=== PATIENT | female | born 1940 | race Caucasian/White ===

== ENCOUNTER 2019-08-30 01:37 | Day surgery (SDC) | payer MEDICARE, SELFPAY ==
[2019-08-29 17:51] VITALS: BMI 25.9
[2019-08-30] VITALS (8 sets, daily range): BP systolic 100–145; BP diastolic 57–87; PULSE 57–64; RESP 16–18; TEMP 36.6–36.8; O2SAT 96–99; BMI 26.6
[2019-08-30 07:42] LABS: Basophils Absolute Auto 0.1 K/mm3 (0.0-0.1); Basophils Percent Auto 0.7 % (0.2-1.2); Eosinophils Absolute Auto 0.2 K/mm3 (0-0.3); Eosinophils Percent Auto 2.8 % (0-4.4); Hematocrit 40.1 % (37.0-47.0); Hemoglobin 13.5 g/dL (12.0-15.0); Immature Granulocyte Absolute 0.02 K/mm3 (0.00-0.031); Immature Granulocyte Percent A 0.3 % (0-0.5); Lymphocytes Absolute Auto 1.74 K/mm3 (0.9-3.2); Lymphocytes Percent Auto 25.3 % (18.3-44.2); Mean Corpuscular HGB Conc 33.7 g/dl (32-36); Mean Corpuscular Hemoglobin 30.5 pg (26-34); Mean Corpuscular Volume 90.7 fl (80-100); Mean Platelet Volume 11.3 fl (7.4-10.4); Monocytes Absolute Auto 0.5 K/mm3 (0.1-0.6); Monocytes Percent Auto 7.4 % (2.6-8.5); Neutrophils Absolute Auto 4.4 K/mm3 (1.3-6.7); Neutrophils Percent Auto 63.5 % (45.5-73.1); Platelet Count Result 170 k/mm3 (150-375); Red Blood Count 4.42 M/mm3 (4.2-5.4); Red Cell Distribution Width 12.6 % (11.5-14.5); White Blood Count 6.9 K/mm3 (4.5-10.0)
[2019-08-30 08:19] LABS: INR 0.9; Prothrombin Time 12.1 Seconds (11.1-14.7)
[2019-08-30 08:24] LABS: Blood Urea Nitrogen 17 mg/dL (7-17); Calcium 8.8 mg/dL (8.4-10.2); Carbon Dioxide 25 mmol/L (22-30); Chloride 105 mmol/L (98-107); Estimated CRCL calculation 54 ml/min; Estimated Glomerular Filt Rate > 60; Glucose 103 mg/dL (65-105); Potassium 4.2 mmol/L (3.4-5.0); Sodium 139 mmol/L (137-145)
--- NOTE | 2019-08-30 09:57 | WPDMODSED ---
Moderate Sedation Note-Pt Data Patient Data Diagnosis: 79-year-old patient with dyspnea, atypical chest pain and abnormal nuclear stress test Present Complaint: exertional dyspnea, intermittent nonexertional chest pain Procedure to be performed/Plan: left heart catheterization Allergies Allergy/AdvReac Type Severity Reaction Status Date / Time Penicillins Allergy Unknown Unknown Verified 08/30/19 07:48 Sulfa (Sulfonamide Allergy Unknown RASH Verified 08/30/19 07:48 Antibiotics) Home Medications Medication Instructions Recorded Confirmed Type aspirin 81 mg PO EVERY OTHER DAY 08/29/19 08/30/19 History coenzyme Q10 400 mg PO EVERY OTHER DAY 08/29/19 08/30/19 History multivitamin 1 tablet PO DAILY 08/29/19 08/29/19 History rosuvastatin [Crestor] 5 mg PO EVERY OTHER DAY 08/29/19 08/30/19 History calcium carbonate [Calcium 600] 1,200 mg PO DAILY 08/30/19 08/30/19 History cyanocobalamin (vitamin B-12) 1,000 mcg PO DAILY 08/30/19 08/30/19 History fish oil-dha-epa 1 cap PO DAILY 08/30/19 08/30/19 History Current Medications: Active Medications Sodium Chloride (Normal Saline Iv) 500 mls @ 100 mls/hr IV CONT .Q5H [facility] Sedation/Anesthesia: No previous sedation/anesthesia problems (including family history). [facility] Social History Social History Gender identity (if verbalized by the patient): Female Mod Sed Physical Exam Physical Exam Pre Procedural Exam: Normal: Appearance, Throat, Airway, Lungs, Heart Size, Heart Rate, Heart Rhythm, Neuro Exam and Extremities Hours since solid foods: 12 Hours since liquid intake: 12 Internal Medicine - PN: Obj Da Vital Signs Vital Signs: Vital Signs - 24 hr 08/30/19 07:15 Temperature 36.6 C Pulse Rate 64 Respiratory Rate 16 Blood Pressure 136/73 Pulse Oximetry 99 Meds/Results Medications: Active Medications Generic Name Dose Route Start Last Admin Trade Name Freq PRN Reason Stop Dose Admin Sodium Chloride 500 mls @ 100 mls/hr 08/30/19 06:05 Normal Saline Iv IV CONT .Q5H [facility] Labs CBC & Chem 7: 08/30/19 07:29 08/30/19 08:02 Labs: Laboratory Results - last 24 hr 08/30/19 08/30/19 08/30/19 07:29 08:02 08:02 WBC 6.9 RBC 4.42 Hgb 13.5 Hct 40.1 MCV 90.7 MCH 30.5 MCHC 33.7 RDW 12.6 Plt Count 170 MPV 11.3 H Immature Gran % (Auto) 0.3 Neut % (Auto) 63.5 Lymph % (Auto) 25.3 [place] % (Auto) 7.4 Eos % (Auto) 2.8 Baso % (Auto) 0.7 Lymph # (Auto) 1.74 [place] # (Auto) 0.5 Eos # (Auto) 0.2 Baso # (Auto) 0.1 Abs Immat Gran (auto) 0.02 Absolute Neuts (auto) 4.4 Absolute Nucleated RBC 0.0 Nucleated RBC % 0.0 PT 12.1 INR 0.9 Sodium 139 Potassium 4.2 Chloride 105 Carbon Dioxide 25 BUN 17 Creatinine 0.70 Estim Creat Clear Calc 54 Estimated GFR > 60 Glucose 103 Calcium 8.8 ASA Classification/Sedation ASA Classification/Sedation ASA Class: II Emergent: No Risks: Risks, benefits and alternatives explained and patient/family accepted plan for sedation. Patient re-evaluated immediately prior to sedation.
--- NOTE | 2019-08-30 09:58 | P.PCNCC_ITS ---
Cardiac Cath Procedure Note Date of procedure:: 08/30/19 Performing physician:: Dangelo Christensen MD Indication:: investigation of JUAREZ, chest pain abnormal nuclear stress test Brief clinical history:: 79-year-old white female a history of exertional dyspnea beginning about 6-8 months ago also with the nonexertional chest pain. a nuclear stress test was done as an outpatient which was abnormal most consistent with breast attenuation Procedure Procedure performed:: left heart catheterization with left ventriculography and coronary angiography Angio-Seal to right femoral artery Sedation/Medication given:: fentanyl 50 mg Versed 2 mg case start time 9:27 a.m. case end time 9:45 a.m. sedation provided by Ailin Palomo RN, trained observer Access site:: right femoral artery Estimated blood loss:: 15-20 cc Procedure note:: patient was brought to the cardiac catheterization lab in the postabsorptive state the right femoral triangle was prepared and draped in the usual fashion. Anesthesia was provided with 1% lidocaine infiltrated locally. Modified Seldinger technique right femoral artery was punctured and a 5 [place] vascular sheath was placed. Left heart catheterization was then carried out a 5 [place] angled pigtail catheter was used to inject the left ventricle the ESCOBEDO projection and to document left-sided hemodynamics. Pigtail catheter was then withdrawn and a 5 [place] FL4 catheter was used to inject the left coronary multiple projections. Following this a 5 [place] JR4 catheter was used to inject the right coronary artery in the SHAY projection. I exchanged this for a no Torque right coronary catheter for the [place] injection. Following this the procedure was terminated the angiogram was done femoral artery with she and Angio-Seal device was deployed with good hemostatic result. 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 Findings:: Central aortic pressure is 1 42/66 left ventricle 142 over to end- diastolic pressure 12 there is no systolic gradient on pullback across the aortic valve. Left main coronary is large caliber widely patent the LAD is a large caliber vessel extending down to around the apex and providing a significant amount of the inferior wall as well. The long LAD as well as its branches are angiographically normal. Circumflex is a large caliber vessel giving rise to the marginal branches and some posterior lateral branches as well. The circumflex is smooth and angiographically normal in appearance right coronary artery is medium in caliber and has a very small RPDA because of the long LAD described above. Other than this the right coronary artery is angiographically normal. The vessel was not engaged with the JR4 catheter there was some catheter induced spasm at the ostium of the artery which was not seen when engaged with the no Torque catheter Conclusion:: angiographically non disease artery normal left ventricular systolic successful Angio-Seal hemostasis device deployed at the of the case current chest pain syndrome is not related to myocardial ischemia based on these findings
--- NOTE | 2019-08-30 10:00 | SUR.PHASEII ---
BEGIN PHASE II RECOVERY. RETURNS VIA STRETCHER TO [facility] 6 S/P [facility] W/ DR. MOLINA. DROWSY, BUT ALERT AND ORIENTED ON ARRIVAL. DENIES CP OR SOB. R. GROIN PUNCTURE SITE SEALED W/ ANGIOSEAL CLOSURE DEVICE AND COVERED W/ STAT SEAL AND TEGADERM. SITE SOFT, NONTENDER, NO BLEEDING OR HEMATOMA NOTED. R. PEDAL PULSE STRONG. SENSATION AND MOVEMENT TO R. FOOT WNL. IVF'S RUNNING ORDERED. REVIEWED BEDREST ACTIVITY RESTRICTIONS AND LENGTH OF BEDREST. BEDREST X 2 HOURS. VOICED UNDERSTANDING OF ALL. VSS. WILL CONTINUE TO MONITOR.
--- NOTE | 2019-08-30 11:45 | SUR.PHASEII ---
BEDREST X 2 HOURS COMPLETE. R. GROIN SITE WITHOUT CHANGE. R. PEDAL PULSE REMAINS STRONG. DANGLED AT BEDSIDE, THEN AMBULATED TO BATHROOM TO VOID. RETURNED TO CHAIR. STEADY GAIT. TOLERATED ACTIVITY WELL. NO CHANGE IN R. GROIN SITE AFTER ACTIVITY. VSS. WILL CONTINUE TO MONITOR.
--- NOTE | 2019-08-30 13:00 | SUR.PHASEII ---
REVIEWED DISCHARGE INSTRUCTIONS AND FOLLOW UP CARE W/ PT. COPY GIVEN. QUESTIONS ANSWERED. VOICED UNDERSTANDING OF ALL INSTRUCTIONS. DISCHARGED HOME, OUT VIA WC WITH ALL PERSONAL BELONGINGS AND DISCHARGE INSTRUCTIONS TO 'S WAITING CAR. VOICES NO C/O. NO DISTRESS NOTED.
== END 2019-08-30 13:00 | disposition home or self-care (01) ==
PROVIDERS: Visit Provider Specialist
PROC: 4A023N7 Measurement of Cardiac Sampling and Pressure, Left Heart, Percutaneous Approach (ICD-10-PCS; CPT 93452; principal; 2019-08-30 08:30)
DX: R94.39 Abnormal result of other cardiovascular function study (principal); R07.89 Other chest pain; R06.09 Other forms of dyspnea; E11.9 Type 2 diabetes mellitus without complications; E78.5 Hyperlipidemia, unspecified; Z79.82 Long term (current) use of aspirin
CPT/HCPCS: 36415; 80048; 85025; 85610; 93458; C1760; C1887; C1894; G0269; J1644; J2250; J3010; J7040

== ENCOUNTER → 2020-08-24 00:57 | Outpatient (CLI) | payer MEDICARE, SELFPAY ==
[2020-08-24 20:39] LABS: SARS-CoV-2 RNA PCR Positive
== END ==
PROVIDERS: PCP Internal Medicine; Visit Provider Internal Medicine Gastroenterology
DX: Z01.812 Encounter for preprocedural laboratory examination (principal); U07.1 COVID-19
CPT/HCPCS: C9803; U0003; U0005

== ENCOUNTER 2020-10-01 01:20 | Day surgery (SDC) | payer MEDICARE, SELFPAY ==
[2020-08-06 14:42] VITALS: BMI 25.6
--- NOTE | 2020-08-27 09:13 | SUR.PREOP ---
Dania informed of COVID + and that procedure is canceled. Patient denies any symptomsat this time. Instructed to reschedule in four week by calling MD office.
[2020-09-16 13:37] VITALS: BMI 25.6
[2020-10-01 06:21] VITALS: BP 133/61; PULSE 67; RESP 20; TEMP 36.8; O2SAT 97; BMI 26.0
[2020-10-01] MEDS: LACTATED RINGERS 1,000 ML 150 ML IV CONT (06:29)
--- NOTE | 2020-10-01 07:08 | PM.HPGS ---
History of Present Illness History of Present Illness Consent: Risks, benefits, and alternatives have been discussed and questions answered. Patient agrees to proceed with procedure. Chief complaint: family hx of colon cancer Narrative: Dania Carlson is a 80 year old female Referred for colon cancer screening. her father had colon cancer Review of Systems Review of Systems: All systems reviewed & are unremarkable except as noted in HPI and below PMFSH Past Medical History Medical History Hyperlipidemia Family History Family History Other Carcinoma of colon Social History Social History Smoking status: Never smoker Alcohol intake: current Drinks per week: 1 Alcohol use details: WINE Substance use: never Substance use type: does not use Living arrangements: with family Gender identity (if verbalized by the patient): Female Spiritual care concerns: No Meds Home Medications and Allergies Home Medications Medication Instructions Recorded Confirmed Type coenzyme Q10 400 mg PO EVERY OTHER DAY 08/29/19 10/01/20 History multivitamin 1 tablet PO DAILY 08/29/19 10/01/20 History rosuvastatin [Crestor] 5 mg PO EVERY OTHER DAY 08/29/19 10/01/20 History calcium carbonate [Calcium 600] 1,200 mg PO DAILY 08/30/19 10/01/20 History cyanocobalamin (vitamin B-12) 1,000 mcg PO DAILY 08/30/19 10/01/20 History fish oil-dha-epa 1 cap PO Q48H 08/30/19 10/01/20 History aspirin [Adult Low Dose Aspirin] 81 mg PO Q48H 08/06/20 10/01/20 History cholecalciferol (vitamin D3) 25 mcg PO DAILY 08/06/20 10/01/20 History [Vitamin D3] Allergies Allergy/AdvReac Type Severity Reaction Status Date / Time Penicillins Allergy Intermediate Rash Verified 10/01/20 06:20 Sulfa (Sulfonamide Allergy Intermediate RASH Verified 10/01/20 06:20 Antibiotics) Vital Signs Vital Signs - 24 hr 10/01/20 06:21 Temperature 36.8 C Pulse Rate 67 Respiratory Rate 20 Blood Pressure 133/61 Pulse Oximetry 97 Exam Resp: Auscultation: clear to auscultation bilaterally Cardio: Rate: regular rate Rhythm: regular rhythm GI: GI Palp: Yes Soft to palpation and No Tenderness to palpation present (GI) Assessment and Plan Assessment and plan (1) Colon cancer screening: Code(s): Z12.11 - Encounter for screening for malignant neoplasm of colon Status: Acute Assessment and Plan: Colonoscopy with possible biopsy or polypectomy or cautery or injection of substances.
--- NOTE | 2020-10-01 07:18 | WPDANESEPPF ---
Anes - Initial Pre Proc Eval Procedure: Operation Date: 10/01/20 07:30 Proposed Procedures p Screening Colonoscopy - Jorge Dubois MD Date/Time: 10/01/20 07:18 Surgeon: Jorge Dubois MD Pre Op Diagnosis: family hx of colon cancer Patient Data Age: 80 Gender: F Height: 5 ft 6 in Weight: 73.3 kg Last Vital Signs Temp 98.3 F 10/01/20 06:21 Pulse 67 10/01/20 06:21 Resp 20 10/01/20 06:21 BP 133/61 10/01/20 06:21 Pulse Ox 97 10/01/20 06:21 Allergies Allergy/AdvReac Type Severity Reaction Status Date / Time Penicillins Allergy Intermediate Rash Verified 10/01/20 06:20 Sulfa (Sulfonamide Allergy Intermediate RASH Verified 10/01/20 06:20 Antibiotics) Home Medications Medication Instructions Recorded Confirmed Type coenzyme Q10 400 mg PO EVERY OTHER DAY 08/29/19 10/01/20 History multivitamin 1 tablet PO DAILY 08/29/19 10/01/20 History rosuvastatin [Crestor] 5 mg PO EVERY OTHER DAY 08/29/19 10/01/20 History calcium carbonate [Calcium 600] 1,200 mg PO DAILY 08/30/19 10/01/20 History cyanocobalamin (vitamin B-12) 1,000 mcg PO DAILY 08/30/19 10/01/20 History fish oil-dha-epa 1 cap PO Q48H 08/30/19 10/01/20 History aspirin [Adult Low Dose Aspirin] 81 mg PO Q48H 08/06/20 10/01/20 History cholecalciferol (vitamin D3) 25 mcg PO DAILY 08/06/20 10/01/20 History [Vitamin D3] Patient hx anesthesia problems: none Family hx anesthesia problems: none PMFSH Past Medical History Medical History (Updated 10/01/20 @ 07:17 by Omari Corado MD) Hyperlipidemia Social History Social History Smoking status: Never smoker Alcohol intake: current Drinks per week: 1 Alcohol use details: WINE Substance use: never Substance use type: does not use Living arrangements: with family Gender identity (if verbalized by the patient): Female Spiritual care concerns: No Anes - Eval Final PreProcedure Day of Procedure 10/01/20 07:18 Patient weight: normal Heart: regular rate and rhythm Lungs: clear to auscultation Airway: Mallampati scale class II Neurological: alert and oriented Last oral intake: >/= 8 hours ASA classification: II Emergent: no Anesthetic plan: proceed Anesthesia type and monitoring: general GIVS and standard monitoring Informed Consent: The patient's anesthetic plan and its attendant risks and benefits were discussed with the patient/family/POA. Questions were solicited and answers provided to the satisfaction of the patient/family/POA.
[2020-10-01 07:39] VITALS: BP 101/48; PULSE 78; RESP 20; O2SAT 96
[2020-10-01 07:49] VITALS: BP 109/61; PULSE 63; RESP 19; O2SAT 97
[2020-10-01 07:59] VITALS: BP 115/64; PULSE 61; RESP 17; O2SAT 97
[2020-10-01 08:09] VITALS: BP 119/61; PULSE 61; RESP 19; O2SAT 98
== END 2020-10-01 08:29 | disposition home or self-care (01) ==
PROVIDERS: PCP Internal Medicine; Visit Provider Internal Medicine Gastroenterology
PROC: 0DJD8ZZ Inspection of Lower Intestinal Tract, Via Natural or Artificial Opening Endoscopic (ICD-10-PCS; CPT 45378; principal; 2020-10-01 07:30)
DX: Z12.11 Encounter for screening for malignant neoplasm of colon (principal); K57.30 Diverticulosis of large intestine without perforation or abscess without bleeding; Z80.0 Family history of malignant neoplasm of digestive organs; E78.5 Hyperlipidemia, unspecified
CPT/HCPCS: G0105; J2704; J7120

== ENCOUNTER 2020-10-13 09:33 | Emergency (ER) | payer MEDICARE, SELFPAY ==
[2020-10-13 10:00] VITALS: BP 126/44; PULSE 71; RESP 12; TEMP 36.7; O2SAT 99
--- NOTE | 2020-10-13 10:15 | ED.SKABFB ---
HPI - Skin/Abscess/Foreign Bdy General Chief complaint: Skin/Abscess/Foreign Body Stated complaint: rash on scalp Source: patient and RN notes reviewed Limitations: no limitations History of Present Illness HPI narrative: The patient, mostly healthy on min. meds, presents with skin eruption. She states she has about half week history of pink, raised eruption limited to her hairline; she had a rare, first time hair appointment about couple weeks ago. No prior/other rashes, fever, discharge; she is concerned might be shingles- but it involves both sides of scalp. Discussed possible causes [infectious-viral, bacterial, allergic, etc.] and will treat broadly Related Data Home Medications Medication Instructions Recorded Confirmed coenzyme Q10 400 mg PO EVERY OTHER DAY 08/29/19 10/01/20 multivitamin 1 tablet PO DAILY 08/29/19 10/01/20 rosuvastatin [Crestor] 5 mg PO EVERY OTHER DAY 08/29/19 10/01/20 calcium carbonate [Calcium 600] 1,200 mg PO DAILY 08/30/19 10/01/20 cyanocobalamin (vitamin B-12) 1,000 mcg PO DAILY 08/30/19 10/01/20 fish oil-dha-epa 1 cap PO Q48H 08/30/19 10/01/20 aspirin 81 mg PO Q48H 08/06/20 10/01/20 cholecalciferol (vitamin D3) 25 mcg PO DAILY 08/06/20 10/01/20 [Vitamin D3] Allergies Allergy/AdvReac Type Severity Reaction Status Date / Time Penicillins Allergy Intermediate Rash Verified 10/13/20 09:49 Sulfa (Sulfonamide Allergy Intermediate RASH Verified 10/13/20 09:49 Antibiotics) Review of Systems Review of Systems: Narrative: General/Constitutional: No weight loss,fever Eyes: N0: Redness,discharge Ears/Nose/Throat: No: Epistaxis,ear discharge Respiratory: Denies: Hemoptysis Gastrointestinal: No Vomiting, Bleeding-rectal Skin: No Lumps, REPORTS eruption Neurologic: No Focal Weakness,Sz Hematologic: Denies: Petechiae/Purpura Psychiatric: No: Suicida ideationl All Other Systems: Reviewed and Negative [facility] Past Medical History Medical History Hyperlipidemia Family History Family History Other Carcinoma of colon Social History Social History Smoking status: Never smoker Alcohol intake: current Drinks per week: 1 Substance use: never Substance use type: does not use Gender identity (if verbalized by the patient): Female Spiritual care concerns: No Comments At time of signature, agree with nursing past medical, surgical, social and family history. There is no relevant family history pertinent to the presenting complaint Exam Narrative: Exam Narrative: General Appearance: Well-nourished, Cooperative Head: Normocephalic Skin: Warm, Dry small, isolated macular papular skin eruption of scalp line, and hair creases Eye: PERRLA, Conjunctiva clear Ear: External ear normal Nose: Normal nose, Nare clear Mouth/Throat: Normal appearing Neck Exam: Supple Respiratory: Airway patent, No respiratory distress Musculoskeletal: Moves all extremities, Non tender Neurological: A&O x3 Psychiatric: Normal mood, Normal affect Course Vital Signs Vital signs: Vital Signs Temperature 98.0 F 10/13/20 10:00 Pulse Rate 71 10/13/20 10:00 Respiratory Rate 12 10/13/20 10:00 Blood Pressure 126/44 L 10/13/20 10:00 Pulse Oximetry 99 10/13/20 10:00 Temperature 98.0 F 10/13/20 10:00 Pulse Rate 71 10/13/20 10:00 Respiratory Rate 12 10/13/20 10:00 Blood Pressure 126/44 L 10/13/20 10:00 Pulse Oximetry 99 10/13/20 10:00 Discharge Plan Discharge Clinical Impression: Eruption of scalp, Pruritic condition Patient Disposition: Home, Self-Care Condition: Stable Instructions: Antibiotic Form, Folliculitis (ED) Additional Instructions: Take antibiotics with food, probiotics; stop if diarrhea occurs Continue photo log of area Avoid hair/skin preparations like dyes, cleansers,
--- NOTE | 2020-10-13 10:49 | PC.NURSE ---
1028: patient was laughing and threw head back and hit the wall; no bump or laceration noted, Dr. Alves notified. Patient is awake and alert, ambulates with steady gait.
== END 2020-10-13 10:28 | disposition home or self-care (01) ==
PROVIDERS: Emergency Provider Emergency Medicine; PCP Internal Medicine
DX: R21 Rash and other nonspecific skin eruption (principal); L29.9 Pruritus, unspecified; E78.5 Hyperlipidemia, unspecified
CPT/HCPCS: 99213; G0463

== ENCOUNTER 2020-11-30 11:05 | Emergency (ER) | payer MEDICARE, SELFPAY ==
[2020-11-30 11:14] VITALS: BP 126/51; PULSE 62; RESP 16; TEMP 37; O2SAT 100
--- NOTE | 2020-11-30 11:26 | ED.SKABFB ---
HPI - Skin/Abscess/Foreign Bdy General Chief complaint: Skin/Abscess/Foreign Body Stated complaint: Rash Time Seen by Provider: 11/30/20 11:15 Source: patient Mode of arrival: ambulatory Limitations: no limitations History of Present Illness HPI narrative: Dania Carlson is a 80 yo female with a PMH of high cholesterol who comes with a pruritic rash on the R front side, and L back side of neck that started 2-3 days ago but is getting worse. Her only known risk factor is working on the yard in the last week she is highly allergic to poison robb and poison sumac and we discussed cleaning of clothing and tools as relates to that; also has been having multiple health problems and she has had a lot of stress Related Data Home Medications Medication Instructions Recorded Confirmed coenzyme Q10 400 mg PO EVERY OTHER DAY 08/29/19 10/13/20 multivitamin 1 tablet PO DAILY 08/29/19 10/13/20 rosuvastatin [Crestor] 5 mg PO EVERY OTHER DAY 08/29/19 10/13/20 calcium carbonate [Calcium 600] 1,200 mg PO DAILY 08/30/19 10/13/20 cyanocobalamin (vitamin B-12) 1,000 mcg PO DAILY 08/30/19 10/13/20 fish oil-dha-epa 1 cap PO Q48H 08/30/19 10/13/20 aspirin 81 mg PO Q48H 08/06/20 10/13/20 cholecalciferol (vitamin D3) 25 mcg PO DAILY 08/06/20 10/13/20 [Vitamin D3] Allergies Allergy/AdvReac Type Severity Reaction Status Date / Time Penicillins Allergy Intermediate Rash Verified 10/13/20 09:49 Sulfa (Sulfonamide Allergy Intermediate RASH Verified 10/13/20 09:49 Antibiotics) Review of Systems Review of Systems: Narrative: CONSTITUTIONAL: Denies fever, chills, sweats. EYES: Denies visual changes, redness, discharge. ENT: Denies rhinorrhea, congestion, sore throat, otalgia. CARDIOVASCULAR: Denies chest pain, palpitations, edema. RESPIRATORY: Denies dyspnea, wheezing, cough GASTROINTESTINAL: Denies abdominal pain, nausea, vomiting, diarrhea. GENITOURINARY: Denies dysuria, hematuria, abnormal discharge SKIN: Rash on right side of front neck and left posterior side of neck, itchy, appears to be enlarging NEUROLOGIC: Denies numbness, or focal weakness. PSYCHIATRIC: Denies anxiety or depression. PMFSH Past Medical History Medical History Hyperlipidemia Family History Family History Other Carcinoma of colon Social History Social History Smoking status: Never smoker Alcohol intake: current Drinks per week: 1 Substance use: never Substance use type: does not use Gender identity (if verbalized by the patient): Female Spiritual care concerns: No Comments At time of signature, I agree with nursing past medical, surgical, social and family history. There is no relevant family history pertinent to the presenting complaint. Exam Narrative: Exam Narrative: GENERAL: This is a well-nourished, well-developed patient, in mild distress. HEAD: normocephalic, atraumatic. EYES: . Sclera clear/white. Vision is grossly intact. EARS: External ears normal, . Hearing grossly intact. NOSE: External nose normal without nasal discharge, nares without redness, no rhinorrhea. THROAT: Mucous membranes moist, NECK: Neck supple, non-tender CARDIOVASCULAR: Regular rate and rhythm without murmurs, gallops, or rubs. RESPIRATORY: Clear to auscultation. Breath sounds equal bilaterally. No wheezes, rales, or rhonchi. GASTROINTESTINAL: Abdomen soft, non-tender, SKIN: warm, intact with pruritic papular rash on the front right side of neck and left side, nonvesicular NEURO: awake, alert, and oriented to person, place and time. There were no obvious focal neurologic abnormalities. Steady gait EXTREMITIES: Normal range of motion. BACK: Nontender without deformity Course Course Emergency Course: [facility] of rash on neck; for the risk of being in the
== END 2020-11-30 11:40 | disposition home or self-care (01) ==
PROVIDERS: Emergency Provider Nurse Practitioner; PCP Internal Medicine
DX: L23.7 Allergic contact dermatitis due to plants, except food (principal); E78.5 Hyperlipidemia, unspecified; E78.00 Pure hypercholesterolemia, unspecified
CPT/HCPCS: 99213; G0463

== ENCOUNTER 2021-12-12 14:50 | Emergency (ER) | payer MEDICARE, SELFPAY ==
--- NOTE | ~2021-12-12 | XR_ITS ---
XR chest 2V DATE: 12/12/2021 15:10 INDICATION: Chest tightness, cough, fever, congestion TECHNIQUE: PA and lateral views COMPARISON: 03/19/2018 PA and lateral chest FINDINGS: Normal heart size. No hilar or mediastinal enlargement. Mild bilateral apical capping. No p ulmonary infiltrate or consolidation, pleural effusion or pulmonary vascular congestion or pneumothor ax. Osteopenia. Minimal dextroscoliosis and mild degenerative change of the thoracic spine. IMPRESSION: No active cardiopulmonary disease Reviewed, dictated and finalized at location A.
[2021-12-12 14:57] VITALS: BP 138/68; PULSE 83; PULSE 87; RESP 20; RESP 23; TEMP 37.2; O2SAT 96; O2SAT 97
[2021-12-12 14:58] VITALS: BP 124/111; PULSE 87; RESP 20; O2SAT 98
[2021-12-12 15:00] VITALS: BP 138/68; PULSE 95; RESP 14; O2SAT 95
[2021-12-12 15:01] VITALS: PULSE 83; RESP 25; O2SAT 97
--- NOTE | 2021-12-12 15:01 | ECG_ITS ---
Measurements Intervals Banks Rate: 84 P: 70 NC: 161 QRS: 5 QRSD: 102 T: 55 QT: 369 QTc: 439 Interpretive Statements SINUS RHYTHM ATRIAL PREMATURE COMPLEX BORDERLINE R WAVE PROGRESSION, ANTERIOR LEADS BASELINE ARTIFACT- I, II, III, AVR, AVL, AVF, V1, V6 BORDERLINE ECG Electronically Signed On 12-12-2021 17:17:14 CDT by Jerome León D.O.
--- NOTE | 2021-12-12 15:01 | ED.SOB ---
HPI - SOB/Dyspnea General Chief Complaint: Shortness of Breath/Dyspnea Stated Complaint: Cough, Fever, Body Aches Time Seen by Provider: 12/12/21 14:59 Source: patient Mode of arrival: ambulatory Limitations: no limitations History of Present Illness HPI Narrative: Patient is 81 years old white female presented to the ED with not feeling well, coughing, fever, chills, body aches, chest tightness and back pain started 3 days ago. Also complaining of some shortness of breath on exertion. She denies sick contact, patient is fully vaccinated for COVID-19 and posted x1. Related Data Home Medications Medication Instructions Recorded Confirmed coenzyme Q10 200 mg capsule 400 mg PO EVERY OTHER DAY 08/29/19 10/13/20 multivitamin 1 tablet PO DAILY 08/29/19 10/13/20 rosuvastatin 5 mg tablet (Crestor) 5 mg PO EVERY OTHER DAY 08/29/19 10/13/20 calcium carbonate 600 mg calcium 1,200 mg PO DAILY 08/30/19 10/13/20 (1,500 mg) tablet (Calcium) cyanocobalamin (vitamin B-12) 1,000 mcg PO DAILY 08/30/19 10/13/20 1,000 mcg tablet fish oil-dha-epa 1,200 mg-144 1 cap PO Q48H 08/30/19 10/13/20 mg-216 mg capsule aspirin 81 mg tablet 81 mg PO Q48H 08/06/20 10/13/20 cholecalciferol (vitamin D3) 25 25 mcg PO DAILY 08/06/20 10/13/20 mcg (1,000 unit) capsule (Vitamin D3) Allergies Allergy/AdvReac Type Severity Reaction Status Date / Time Penicillins Allergy Intermediate Rash Verified 12/12/21 15:02 Sulfa (Sulfonamide Allergy Intermediate RASH Verified 12/12/21 15:02 Antibiotics) Review of Systems Review of Systems: All systems reviewed & are unremarkable except as noted in HPI and below PMFSH Past Medical History Medical History Hyperlipidemia Family History Family History Other Carcinoma of colon Social History Social History Smoking status: Never smoker Alcohol intake: current Drinks per week: 1 Alcohol use details: WINE Substance use: never Substance use type: does not use Gender identity (if verbalized by the patient): Female Spiritual care concerns: No Exam Narrative: General appearance: Well-developed, well-nourished, does not look in pain or distress or have trouble breathing. Skin: Normal color Head: Normocephalic, nontraumatic Eyes: Clear conjunctiva ENT: Oropharynx normal, ears normal, nose normal Neck: Supple, nontender Chest and respiratory: Airway patent, no respiratory distress, no accessory muscle use Heart: Regular rate/rhythm Abdomen: Soft, nontender, no organomegaly, quiet bowel sounds Vascular: Normal peripheral pulses, normal capillary refill. Musculoskeletal: Normal range of motion, nontender back Neurologic: Alert and oriented ?3, ROOFER GYPSUM is normal as tested, no gross motor deficit Course Course Emergency Course: Patient presents with COVID symptoms which is mild to moderate, patient oxygenation on room air 96 to 99%, presents with no fever, hemodynamically stable, work-up today showed no significant abnormality to justify hospitalization. Paxlovid should be given within the first 5 days of infection. Today is day 3. Patient's symptoms are mild to moderate. Reevaluation(s) Reevaluation #1: Patient feeling okay and looking okay at the time of discharge. Date: 12/12/21 Time: 17:42 Vital Signs Vital signs: Vital Signs Temperature 37.2 C 12/12/21 14:57 Pulse Rate 87 12/12/21 14:57 Respiratory Rate 20 12/12/21 14:57 Blood Pressure 138/68 12/12/21 14:57 Pulse Oximetry 96 12/12/21 14:57 Oxygen Delivery Room Air 12/12/21
[2021-12-12 15:16] VITALS: PULSE 78; O2SAT 99
[2021-12-12] MEDS: ASPIRIN 81 MG CHEWABLE TABLET 324 MG PO (15:19)
[2021-12-12 15:29] LABS: Basophils Percent Auto 0.5 % (0.2-1.2); Eosinophils Absolute Auto 0.1 K/mm3 (0-0.3); Eosinophils Percent Auto 1.5 % (0-4.4); Hematocrit 41.8 % (37.0-47.0); Hemoglobin 14.2 g/dL (12.0-15.0); Immature Granulocyte Absolute 0.01 K/mm3 (0.00-0.031); Immature Granulocyte Percent A 0.1 % (0-0.5); Lymphocytes Absolute Auto 1.04 K/mm3 (0.9-3.2); Lymphocytes Percent Auto 12.2 % (18.3-44.2); Mean Corpuscular Hemoglobin 31.1 pg (26-34); Mean Corpuscular Volume 91.5 fl (80-100); Mean Platelet Volume 10.5 fl (7.4-10.4); Monocytes Absolute Auto 0.7 K/mm3 (0.1-0.6); Neutrophils Absolute Auto 6.6 K/mm3 (1.3-6.7); Neutrophils Percent Auto 77.7 % (45.5-73.1); Platelet Count Result 163 k/mm3 (150-375); Red Blood Count 4.57 M/mm3 (4.2-5.4); White Blood Count 8.5 K/mm3 (4.5-10.0)
--- NOTE | 2021-12-12 15:37 | PC.NURSE ---
Pt to restroom with steady gait for urine sample.
--- NOTE | 2021-12-12 15:39 | PC.NURSE ---
Pt unable to provide ua, refusing cath, will attempt sheyla
[2021-12-12 15:40] LABS: Alanine Aminotransferase 25 U/L (6-35); Alkaline Phosphatase 87 U/L (38-126); Anion Gap 7 mmol/L (8-16); Aspartate Amino Transferase 31 U/L (14-36); Bilirubin,Total 0.5 mg/dL (0.2-1.3); Blood Urea Nitrogen 16 mg/dL (7-17); Calcium 8.8 mg/dL (8.4-10.2); Carbon Dioxide 24 mmol/L (22-30); Chloride 103 mmol/L (98-107); Estimated CRCL calculation 42 ml/min; Estimated Glomerular Filt Rate 60; Glucose 118 mg/dL (65-110); Lipase 148 U/L (23-300); Potassium 3.9 mmol/L (3.4-5.0); Sodium 134 mmol/L (137-145)
[2021-12-12 15:41] LABS: Lactic Acid Reflex 0.9 mmol/L (0.7-2.0)
[2021-12-12 15:51] LABS: Troponin I < 0.012 ng/mL (0.000-0.034)
[2021-12-12 15:57] LABS: Prothrombin Time 12.9 Seconds (11.1-14.7)
[2021-12-12 15:58] LABS: Partial Thromboplastin Time 29.5 SECONDS (22.3-36.8)
[2021-12-12 16:46] LABS: Influenza A QL RT-PCR Negative (Negative); Influenza B QL RT-PCR Negative (Negative); SARS-CoV-2 RNA PCR Positive
[2021-12-12 17:19] LABS: Bacteria Urine Trace /hpf; Calcium Oxalate Crystals Urine Present /hpf; Mucus Urine Heavy /lpf; Squamous Epithelial Cell Urine Rare /hpf (Few)
[2021-12-12 17:26] LABS: Color Urine Yellow (Yellow)
[2021-12-12 17:27] LABS: Appearance Urine Clear (Clear)
[2021-12-12 17:28] LABS: Add Urine Microscopic? YES; Bilirubin Urine 1+ (Negative); Blood Urine Negative (Negative); Glucose Urine UA Negative (Negative); Ketones Urine 1+ mg/dL (Negative); Leukocyte Esterase Ur Negative LEU/UL (Negative); Nitrate Urine Negative (Negative); Protein Urine Trace mg/dL (Negative); Specific Grav Ur 1.025 (1.001-1.035); Urobilinogen Urine 0.2 mg/dL (<2.0); pH Urine 5.5 (5.0-9.0)
[2021-12-12 17:46] VITALS: BP 142/78; PULSE 78; RESP 16; O2SAT 100
== END 2021-12-12 17:46 | disposition home or self-care (01) ==
PROVIDERS: Emergency Provider Emergency Medicine; PCP Internal Medicine
DX: U07.1 COVID-19 (principal); E78.5 Hyperlipidemia, unspecified; R82.998 Other abnormal findings in urine
CPT/HCPCS: 36415; 71046; 80053; 81001; 83605; 83690; 84484; 85025; 85610; 85730; 86140; 87040; 87086; 87147; 87181; 87186; 87502; 93005; 99284; A9270; C9803; U0003; U0005

== ENCOUNTER 2022-04-03 15:31 | Emergency (ER) | payer MEDICARE, SELFPAY ==
--- NOTE | ~2022-04-03 | CT_ITS ---
EXAMINATION: CT abdomen pelvis w con DATE: 04/03/2022 18:36 INDICATION: Generalized abdominal pain. Blood in stool. TECHNIQUE: Computed tomography (CT) of the abdomen and pelvis was performed with 100 mL Omnipaque 350 intravenous contrast. Automated exposure control and iterative reconstruction technique were employe d. The dose-length product was 409.18 mGy-cm. COMPARISON: None. FINDINGS: The visualized portions of the lung bases demonstrate mild atelectasis. A calcified left kanchan ng nodule is consistent with old granulomatous disease. No pleural effusion. The heart size is normal . No pericardial effusion. The liver and gallbladder are normal. Calcifications in the spleen are con sistent with old granulomatous disease. The pancreas, adrenal glands, and kidneys are normal. There i s diverticulosis of the colon without evidence of diverticulitis. There are no dilated loops of bowel . The appendix is not visualized. There are no pathologically enlarged lymph nodes. There is no free intraperitoneal fluid. There is an umbilical hernia containing fat. There is fat stranding at the will t of the small bowel mesentery. There is a total right hip arthroplasty. There is severe lumbar spond ylosis and moderate thoracic spondylosis. IMPRESSION: 1. Umbilical hernia containing fat. 2. Fat stranding at the root of the small bowel mesentery, which may be edema or inflammation (mesent lizy panniculitis). Reviewed, dictated and finalized at location A. IMPRESSION: 1. Umbilical hernia containing fat. 2. Fat stranding at the root of the small bowel mesentery, which may be edema o r inflammation (mesenteric panniculitis).
[2022-04-03 15:52] VITALS: BP 124/50; PULSE 81; RESP 16; TEMP 37.1; O2SAT 99
[2022-04-03 16:01] LABS: Basophils Absolute Auto 0.1 K/mm3 (0.0-0.1); Basophils Percent Auto 0.8 % (0.2-1.2); Eosinophils Absolute Auto 0.2 K/mm3 (0-0.3); Eosinophils Percent Auto 1.8 % (0-4.4); Hematocrit 40.1 % (37.0-47.0); Hemoglobin 13.8 g/dL (12.0-15.0); Immature Granulocyte Absolute 0.02 K/mm3 (0.00-0.031); Immature Granulocyte Percent A 0.2 % (0-0.5); Lymphocytes Absolute Auto 1.97 K/mm3 (0.9-3.2); Lymphocytes Percent Auto 23.1 % (18.3-44.2); Mean Corpuscular HGB Conc 34.4 g/dl (32-36); Mean Corpuscular Hemoglobin 31.2 pg (26-34); Mean Corpuscular Volume 90.5 fl (80-100); Mean Platelet Volume 10.4 fl (7.4-10.4); Monocytes Absolute Auto 0.5 K/mm3 (0.1-0.6); Monocytes Percent Auto 5.9 % (2.6-8.5); Neutrophils Absolute Auto 5.8 K/mm3 (1.3-6.7); Neutrophils Percent Auto 68.2 % (45.5-73.1); Platelet Count Result 193 k/mm3 (150-375); Red Blood Count 4.43 M/mm3 (4.2-5.4); Red Cell Distribution Width 12.4 % (11.5-14.5); White Blood Count 8.5 K/mm3 (4.5-10.0)
[2022-04-03 16:12] LABS: Alanine Aminotransferase 26 U/L (6-35); Albumin Level 4.4 g/dL (3.5-5.1); Alkaline Phosphatase 89 U/L (38-126); Anion Gap 10 mmol/L (8-16); Aspartate Amino Transferase 31 U/L (14-36); Bilirubin,Total 0.4 mg/dL (0.2-1.3); Blood Urea Nitrogen 19 mg/dL (7-17); Calcium 9.5 mg/dL (8.4-10.2); Carbon Dioxide 25 mmol/L (22-30); Chloride 104 mmol/L (98-107); Estimated Glomerular Filt Rate > 60; Glucose 128 mg/dL (65-110); Potassium 3.9 mmol/L (3.4-5.0); Sodium 139 mmol/L (137-145)
[2022-04-03 16:20] LABS: INR 0.9; Prothrombin Time 12.2 Seconds (11.1-14.7)
[2022-04-03 16:21] LABS: Partial Thromboplastin Time 26.8 SECONDS (22.3-36.8)
--- NOTE | 2022-04-03 17:53 | ED.GIBLEED ---
HPI - GI Bleed General Chief complaint: GI Bleed Stated complaint: GI bleed Time Seen by Provider: 04/03/22 17:42 History of Present Illness HPI Narrative: 81-year-old female presents to the emergency room today for complaints of generalized abdominal discomfort and rectal bleeding. She reports that symptoms have been going on for the past 3 days. She describes the abdominal discomfort as more of an indigestion feeling. She says that she just has not been feeling well and she has been feeling tired and rundown. She says that the rectal bleeding has been small amounts of bright red and has only happened a few times. One time it was with stool and the other time it was when she wiped. No dizziness or lightheadedness. Denies any chest pain or shortness of breath. No nausea, vomiting or diarrhea. Related Data Home Medications Medication Instructions Recorded Confirmed coenzyme Q10 200 mg capsule 400 mg PO EVERY OTHER DAY 08/29/19 10/13/20 multivitamin 1 tablet PO DAILY 08/29/19 10/13/20 rosuvastatin 5 mg tablet (Crestor) 5 mg PO EVERY OTHER DAY 08/29/19 10/13/20 calcium carbonate 600 mg calcium 1,200 mg PO DAILY 08/30/19 10/13/20 (1,500 mg) tablet (Calcium) cyanocobalamin (vitamin B-12) 1,000 mcg PO DAILY 08/30/19 10/13/20 1,000 mcg tablet fish oil-dha-epa 1,200 mg-144 1 cap PO Q48H 08/30/19 10/13/20 mg-216 mg capsule aspirin 81 mg tablet 81 mg PO Q48H 08/06/20 10/13/20 cholecalciferol (vitamin D3) 25 25 mcg PO DAILY 08/06/20 10/13/20 mcg (1,000 unit) capsule (Vitamin D3) Allergies Allergy/AdvReac Type Severity Reaction Status Date / Time Penicillins Allergy Intermediate Rash Verified 12/12/21 15:02 Sulfa (Sulfonamide Allergy Intermediate RASH Verified 12/12/21 15:02 Antibiotics) Review of Systems Review of Systems: CONSTITUTIONAL: Denies fever, chills, or sweats. Reports fatigue. EYES: Denies visual changes, redness, or discharge. ENT: Denies rhinorrhea, congestion, sore throat, or otalgia. CARDIOVASCULAR: Denies chest pain, palpitations, or edema. RESPIRATORY: Denies cough or dyspnea. GASTROINTESTINAL: Reports generalized abdominal discomfort and bloating, denies nausea, vomiting, or diarrhea. reports small bright red rectal bleeding GENITOURINARY: Denies dysuria or hematuria. SKIN: Denies rash or itching. MUSCULOSKELETAL: Denies back pain, joint pain, or myalgia. NEUROLOGIC: Denies headache, numbness, dizziness, or weakness. PSYCHIATRIC: Denies anxiety or depression. PMFSH Past Medical History Medical History Hyperlipidemia Family History Family History Other Carcinoma of colon Social History Social History Smoking status: Never smoker Alcohol intake: current Drinks per week: 1 Alcohol use details: WINE Substance use: never Substance use type: does not use Gender identity (if verbalized by the patient): Female Spiritual care concerns: No Exam Narrative: GENERAL: Well-appearing, well-nourished, and in no acute distress. HEAD: Normocephalic, atraumatic. NECK: Supple. No adenopathy or masses. No carotid bruits or JVD CHEST: Clear to auscultation. No respiratory distress. No wheezes rales or rhonchi HEART: Regular rate and rhythm. No murmur heard. Normal peripheral pulses. ABDOMEN: Soft, nontender, nondistended, normal active bowel sounds. EXTREMITIES: Normal range of motion. No edema. SKIN: Warm, dry, no rash. NEURO: No focal deficits. Alert and oriented x3. PSYCH: Normal mood and affect. Course Vital Signs Vital signs: Vital Signs Temperature 37.1 C 04/03/22 15:52 Pulse Rate 81 04/03/22 15:52 Respiratory Rate 16 04/03/22 15:52 Blood Pressure 124/50 L 04/03/22 15:52 Pulse Oximetry 99 04/03/22 15:52 Oxygen Delivery Room Air 04/03/22 15:52 Temperature 37.1 C 0
[2022-04-03 18:13] VITALS: BP 117/55; PULSE 71; RESP 16; O2SAT 99
[2022-04-03 19:13] VITALS: BP 160/64; PULSE 74; RESP 16; O2SAT 100
[2022-04-03 19:42] LABS: CRP 0.6 mg/dL (<1.0)
== END 2022-04-03 19:30 | disposition home or self-care (01) ==
PROVIDERS: Emergency Medicine; Emergency Provider Nurse Practitioner Family; PCP Internal Medicine
DX: K65.4 Sclerosing mesenteritis (principal); R14.0 Abdominal distension (gaseous); K62.5 Hemorrhage of anus and rectum; E78.5 Hyperlipidemia, unspecified; Z79.82 Long term (current) use of aspirin; K42.9 Umbilical hernia without obstruction or gangrene
CPT/HCPCS: 36415; 74177; 80053; 85025; 85610; 85730; 86140; 86850; 86900; 86901; 99284; Q9967

== ENCOUNTER 2023-08-12 14:01 | Emergency (ER) | payer MEDICARE, SELFPAY ==
[2023-08-12] VITALS (7 sets, daily range): BP systolic 127–148; BP diastolic 52–68; PULSE 59–69; RESP 16–20; TEMP 36.5; O2SAT 97–100
--- NOTE | ~2023-08-12 | XR_ITS ---
EXAMINATION: XR chest 2V 08/12/2023 15:09 INDICATION: Shortness of breath PROCEDURE: 2 view chest COMPARISON: 12/12/2021 FINDINGS: The lungs are clear. The cardiomediastinal silhouette is within normal limits. There are no pleural effusions. There is no pneumothorax suspected. IMPRESSION: 1: NO ACUTE CARDIOPULMONARY DISEASE. Reviewed, dictated and finalized at location L. 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
--- NOTE | 2023-08-12 14:03 | ECG_ITS ---
Measurements Intervals [place] Rate: 67 P: 74 DC: 152 QRS: -37 QRSD: 106 T: 61 QT: 377 QTc: 400 Interpretive Statements SINUS RHYTHM WITH SINUS ARRHYTHMIA LEFT AXIS DEVIATION LEFT ATRIAL ENLARGEMENT INCOMPLETE RIGHT BUNDLE BRANCH BLOCK ANTEROSEPTAL INFARCT, AGE INDETERMINATE BORDERLINE ST-T WAVE ABNORMALITY- INF/LAT LEADS ABNORMAL ECG COMPARED TO ECG 12/12/2021 15:03:11 SINUS ARRHYTHMIA NOW PRESENT LEFT-AXIS DEVIATION NOW PRESENT INCOMPLETE RIGHT BUNDLE-BRANCH BLOCK NOW PRESENT MYOCARDIAL INFARCT NOW PRESENT Electronically Signed On 08-12-2023 14:12:07 RN SPINE by Jerome León D.O.
--- NOTE | 2023-08-12 14:37 | ED.CHESTPAIN ---
HPI - Chest Pain General Chief Complaint: Chest Pain Stated Complaint: chest pain Time Seen by Provider: 08/12/23 14:26 Source: patient Mode of arrival: ambulatory Limitations: no limitations History of Present Illness HPI narrative: This is a 83 year old female that presents to the ER for chest pain. Ongoing today. Reports intermittent left sided chest discomfort that radiates out. Reports it feels like a tightness. Reports she has noted exertional dyspnea the last couple of weeks. Denies lower extremity edema. Related Data Home Medications Medication Instructions Recorded Confirmed coenzyme Q10 200 mg capsule 400 mg PO EVERY OTHER DAY 08/29/19 10/13/20 multivitamin 1 tablet PO DAILY 08/29/19 10/13/20 rosuvastatin 5 mg tablet (Crestor) 5 mg PO EVERY OTHER DAY 08/29/19 10/13/20 calcium carbonate 600 mg calcium 1,200 mg PO DAILY 08/30/19 10/13/20 (1,500 mg) tablet (Calcium) cyanocobalamin (vitamin B-12) 1,000 mcg PO DAILY 08/30/19 10/13/20 1,000 mcg tablet fish oil-dha-epa 1,200 mg-144 1 cap PO Q48H 08/30/19 10/13/20 mg-216 mg capsule aspirin 81 mg tablet 81 mg PO Q48H 08/06/20 10/13/20 cholecalciferol (vitamin D3) 25 25 mcg PO DAILY 08/06/20 10/13/20 mcg (1,000 unit) capsule (Vitamin D3) Allergies Allergy/AdvReac Type Severity Reaction Status Date / Time Penicillins Allergy Intermediate Rash Verified 08/12/23 14:20 Sulfa (Sulfonamide Allergy Intermediate RASH Verified 08/12/23 14:20 Antibiotics) Review of Systems Review of Systems: CONSTITUTIONAL: Denies fever CARDIOVASCULAR: Reports chest pain. Denies edema. RESPIRATORY: Reports dyspnea. All systems reviewed & are unremarkable except as noted in HPI and below PMFSH Past Medical History Medical History Hyperlipidemia Family History Family History Other Carcinoma of colon Social History Social History Smoking status: Never smoker Alcohol intake: current Drinks per week: 1 Alcohol use details: WINE Substance use: never Substance use type: does not use Living arrangements: with family Gender identity (if verbalized by the patient): Female Spiritual care concerns: No Exam Narrative: GENERAL: Well-appearing, well-nourished, and in no acute distress. HEAD: Normocephalic, atraumatic. EYES: EOMI. NECK: Supple. No adenopathy or masses. No JVD CHEST: Clear to auscultation. No respiratory distress. No wheezes rales or rhonchi HEART: Regular rate and rhythm. No murmur heard. Normal peripheral pulses. EXTREMITIES: Normal range of motion. No edema. SKIN: Warm, dry, no rash. NEURO: No focal deficits. Alert and oriented x3. PSYCH: Normal mood and affect Course Course Emergency Course: Patient updated on her workup and recommendation for admission. She declines at this time Vital Signs Vital signs: Vital Signs Temperature 97.7 F 08/12/23 14:05 Pulse Rate 69 08/12/23 14:05 Respiratory Rate 20 08/12/23 14:05 Blood Pressure 148/58 H 08/12/23 14:05 Pulse Oximetry 100 08/12/23 14:05 Oxygen Delivery Room Air 08/12/23 14:05 Temperature 97.7 F 08/12/23 14:05 Pulse Rate 66 08/12/23 17:57 Respiratory Rate 17 08/12/23 17:57 Blood Pressure 141/60 H 08/12/23 17:57 Pulse Oximetry 98 08/12/23 17:57 Oxygen Delivery Room Air 08/12/23 14:18 MDM - Chest Pain MDM Narrative Medical decision making narrative: Patient presents to the emergency department for chest pain today. Also reporting recent ongoing exertional dyspnea. Her vitals are stable. CBC and metabolic panel without concerning findings. EKG with nonspecific changes. Her baseline troponin is negative. Chest x-ray without acute cardiopulmonary abnormality. Her BNP is not elevated. Her heart score is a 5. Patient updated on her workup a
[2023-08-12] MEDS: ASPIRIN 81 MG CHEWABLE TABLET 324 MG PO (14:48)
[2023-08-12 15:26] LABS: Basophils Percent Auto 0.6 % (0.2-1.2); Eosinophils Absolute Auto 0.2 K/mm3 (0-0.3); Eosinophils Percent Auto 2.7 % (0-4.4); Immature Granulocyte Absolute 0.02 K/mm3 (0.00-0.031); Immature Granulocyte Percent A 0.3 % (0-0.5); Lymphocytes Absolute Auto 1.98 K/mm3 (0.9-3.2); Lymphocytes Percent Auto 29.6 % (18.3-44.2); Mean Corpuscular HGB Conc 33.3 g/dl (32-36); Mean Corpuscular Hemoglobin 30.7 pg (26-34); Mean Corpuscular Volume 92.1 fl (80-100); Mean Platelet Volume 11.6 fl (7.4-10.4); Monocytes Absolute Auto 0.5 K/mm3 (0.1-0.6); Monocytes Percent Auto 7.6 % (2.6-8.5); Neutrophils Percent Auto 59.2 % (45.5-73.1); Platelet Count Result 187 k/mm3 (150-375); Red Blood Count 4.56 M/mm3 (4.2-5.4); Red Cell Distribution Width 12.6 % (11.5-14.5); White Blood Count 6.7 K/mm3 (4.5-10.0)
[2023-08-12 15:37] LABS: INR 0.9; Prothrombin Time 12.6 Seconds (11.1-14.7)
[2023-08-12 15:38] LABS: Partial Thromboplastin Time 27.8 SECONDS (22.3-36.8)
[2023-08-12 16:48] LABS: NT Pro B Type Natriuretic Pept 106 pg/mL (19.9-100)
[2023-08-12 17:42] LABS: Alanine Aminotransferase 26 U/L (6-35); Albumin Level 4.1 g/dL (3.5-5.1); Alkaline Phosphatase 93 U/L (38-126); Anion Gap 6 mmol/L (8-16); Aspartate Amino Transferase 31 U/L (14-36); Bilirubin,Total 0.6 mg/dL (0.2-1.3); Blood Urea Nitrogen 15 mg/dL (7-17); Calcium 9.5 mg/dL (8.4-10.2); Carbon Dioxide 28 mmol/L (22-30); Chloride 104 mmol/L (98-107); Estimated CRCL calculation 51 ml/min; Estimated Glomerular Filt Rate > 60; Glucose 99 mg/dL (65-110); Lipase 122 U/L (23-300); Potassium 4.3 mmol/L (3.4-5.0); Sodium 138 mmol/L (137-145)
[2023-08-12 17:56] LABS: Troponin I < 0.012 ng/mL (0.000-0.034)
--- NOTE | 2023-08-12 19:09 | PC.NURSE ---
Report given to Teodora BLANCAS, all questions answered
== END 2023-08-12 19:35 | disposition home or self-care (01) ==
PROVIDERS: Emergency Medicine; Emergency Provider Physician Assistant; PCP Internal Medicine
DX: R07.89 Other chest pain (principal); E78.5 Hyperlipidemia, unspecified; R06.00 Dyspnea, unspecified; I45.10 Unspecified right bundle-branch block; R94.31 Abnormal electrocardiogram [ECG] [EKG]; Z79.82 Long term (current) use of aspirin
CPT/HCPCS: 36415; 71046; 80053; 83690; 83880; 84484; 85025; 85610; 85730; 93005; 99284; A9270

== ENCOUNTER 2025-05-30 02:41 | Observation (INO) | payer MEDICARE, SELFPAY ==
[2025-05-30] VITALS (18 sets, daily range): BP systolic 108–152; BP diastolic 49–64; PULSE 65–87; RESP 13–21; TEMP 36.6–36.9; O2SAT 93–99; BMI 26.5
--- NOTE | 2025-05-30 | EST_ITS ---
Patient Info Name: Dania Carlson Age: 85 years : 1940 Gender: Female Ht: 66 in Wt: 164 lbs BSA: 1.88 m2 HR: 66 bpm BP: 134 / 68 mmHg Exam Date: 05/30/2025 9:53 AM Patient Status: I Admit Date: 05/30/2025 Exam Type: CA stress mitchel w NM A regadenoson stress test was performed. Staff Referring Physician: Maged Llamas Attending Provider: Trent Germain Exercise Technologist: Bethany Jernigan Exercise Physician: Maged Llamas Summary 1. Abnormal ST segment depression consistent with myocardial ischemia. 2. Please correlate with nuclear medicine images, reported separately. Protocol: Lexiscan Stress ECG Details Stage: REST Duration (min): 0 min : 47 sec HR (bpm): 66 SBP (mmHg): 134 DBP (mmHg): 68 Stage: REST Duration (min): 7 min : 20 sec HR (bpm): 65 SBP (mmHg): 134 DBP (mmHg): 68 Stage: STAGE 1 Duration (min): 0 min : 59 sec HR (bpm): 88 SBP (mmHg): 129 DBP (mmHg): 79 Stage: RECOVERY Duration (min): 1 min : 0 sec HR (bpm): 98 SBP (mmHg): 129 DBP (mmHg): 79 Stage: RECOVERY Duration (min): 2 min : 0 sec HR (bpm): 91 SBP (mmHg): 163 DBP (mmHg): 74 Stage: RECOVERY Duration (min): 3 min : 0 sec HR (bpm): 86 SBP (mmHg): 152 DBP (mmHg): 71 Stage: RECOVERY Duration (min): 4 min : 0 sec HR (bpm): 87 SBP (mmHg): 152 DBP (mmHg): 71 Stage: RECOVERY Duration (min): 5 min : 0 sec HR (bpm): 82 SBP (mmHg): 146 DBP (mmHg): 72 Stage: RECOVERY Duration (min): 6 min : 0 sec HR (bpm): 79 SBP (mmHg): 146 DBP (mmHg): 72 Stage: RECOVERY Duration (min): 7 min : 0 sec HR (bpm): 89 SBP (mmHg): 152 DBP (mmHg): 76 Stage: RECOVERY Duration (min): 7 min : 33 sec HR (bpm): 87 SBP (mmHg): 152 DBP (mmHg): 76 Rest HR: 65 bpm Peak HR: 101 bpm Rest Sys BP: 134 mmHg Peak Sys BP: 163 mmHg Max Pred HR: 137 bpm % Max Pred HR: 74 % Target HR: 116 bpm Max RPP: 16,463 bpm*mmHg Total Time: 1 min : 0 sec Rest Santos BP: 68 mmHg Peak Santos BP: 74 mmHg Total Dose: 0.4 mg Resting ECG Sinus rhythm with a ventricular rate of 65 beats per minute. Rare PVC. Nonspecific T-wave abnormalities. Stress ECG [address] depressions in the inferior leads suggestive of ischemia with Lexiscan. Arrhythmias Rare PVCs. Report Signatures
--- NOTE | 2025-05-30 | ECHO_ITS ---
Patient Info Name: Dania Carlson Age: 85 years : 1940 Gender: Female Ht: 66 in Wt: 164 lbs BSA: 1.88 m2 BP: 125 / 53 mmHg Exam Date: 05/30/2025 1:50 PM Patient Status: I Admit Date: 05/30/2025 Exam Type: CA echo doppler color flow Staff Referring Physician: Maged Llamas Attending Provider: Trent Germain Summary 1. The left normal in size and systolic function. There is concentric left ventricular remodeling. The left ventricular ejection fraction is visually estimated to be 60-65%. There are no regional wall motion abnormalities. 2. The right ventricle is normal in size and systolic function. 3. The aortic valve is trileaflet and sclerotic. There is no aortic stenosis. There is mild aortic regurgitation. Left Ventricle The left normal in size and systolic function. There is concentric left ventricular remodeling. The left ventricular ejection fraction is visually estimated to be 60-65%. There are no regional wall motion abnormalities. Right Ventricle The right ventricle is normal in size and systolic function. Left Atria The left atrium is normal size. Right Atria The right atrium is normal size. Atrial Septum Atrial septum is normal. Aortic Valve The aortic valve is trileaflet and sclerotic. There is no aortic stenosis. There is mild aortic regurgitation. Pulmonic Valve The pulmonic valve is not well visualized. Mitral Valve The mitral valve is normal. There is no mitral regurgitation. Tricuspid Valve The tricuspid valve is grossly normal. There is no tricuspid regurgitation. Pericardium/Pleural Pericardium is normal in appearance with no evidence for significant pericardial effusion. Inferior Vena Cava Normal inferior vena cava with >50% collapse upon inspiration consistent with normal right atrial pressure, 3 mmHg. Aorta Aortic root at the level of the sinus of Valsalva measures 2.8 cm in diameter. Left Ventricular Outflow Tract Name Value Normal LVOT 2D LVOT Diameter 2.0 cm LVOT Doppler LVOT Peak Velocity 101 cm/s LVOT Peak Gradient 4 mmHg LVOT Mean Gradient 2 mmHg LVOT VTI 26 cm LVOT VTI/AV VTI Ratio 0.5 LVOT Stroke Volume 84 ml LVOT CO 5.3 l/min LVOT CI 2.8 l/min/m2 Pulmonic Valve Name Value Normal PV Doppler PV Peak Velocity 75 cm/s PV Peak Gradient 2 mmHg PV Mean Gradient 1 mmHg Mitral Valve Name Value Normal MV Doppler MV Peak Gradient 4 mmHg MV Mean Gradient 2 mmHg MV Area (Cont Eq VTI) 2.8 cm2 MV Diastolic Function MV E Peak Velocity 87 cm/s MV A Peak Velocity 98 cm/s MV E/A 0.9 MV Decel Time (PW) 236 ms MV Annular TDI MV E/e' (Septal) 10.0 MV E/e' (Lateral) 12.2 MV E/e' (Average) 11.1 Tricuspid Valve Name Value Normal Estimated PAP/RSVP RA Pressure 3 mmHg <=5 TV Annular TDI TV Lateral Monica s' Velocity 9.6 cm/s >=9.5 Aortic Valve Name Value Normal AV Doppler AV Peak Velocity 199 cm/s AV Peak Gradient 15 mmHg AV Mean Gradient 9 mmHg AV VTI 49 cm AV Area (Cont Eq VTI) 1.7 cm2 >=3.0 AV Area (Cont Eq Joey) 1.6 cm2 AV DI (Joey) 0.51 AV Regurgitation 2D LVOT Area 3.2 cm2 Ventricles Name Value Normal LV Dimensions 2D/MM IVS Diastolic Thickness (2D) 1.0 cm 0.6-1.0 LVID Diastole (2D) 4.2 cm 3.8-5.2 LVIW Diastolic Thickness (2D) 1.0 cm 0.6-0.9 LVID Systole (2D) 3.1 cm 2.2-3.5 LVOT Diameter 2.0 cm LV Mass (2D Cubed) 137.80 g 67.00-162.00 LV Mass Index (2D Cubed) 73 g/m2 43-95 Relative Wall Thickness (2D) 0.48 <=0.42 LV Fractional Shortening/Ejection Fraction 2D/MM LV Fractional Shortening (2D) 28 % 27-45 LV EF (2D Teichholz) 54 % LV Diastolic Volume (4C MOD) 51 ml LV EF (4C MOD) 67 % LV Diastolic Volume (2C MOD) 59 ml LV EF (2C MOD) 64 % LV Diastolic Volume (BP MOD) 58 ml 46-106 LV Diastolic Volume Index (BP MOD) 31 ml/m2 29-61 LV Systolic Volume (BP MOD) 19 ml 14-42 LV Systolic Volume Index (BP MOD) 10 ml/m2 8-24 LV EF (BP MOD) 66 % 54-74 LV Diastolic Length (4C) 6.3 cm LV Systolic Length (4C) 5.2 cm LV Stroke Volume (4C MOD) 34 ml Atria Name Value Normal LA Dimensions LA Volume (4C A-L) 37 ml LA Volume (BP A-L) 41 ml RA Dimensions RA Systolic Major [place] Length (4C) 4.1 cm 2.2-2.8 RA Area (4C) 10.3 cm2 <=18.0 Report Signatures
--- NOTE | ~2025-05-30 | CT_ITS ---
CTA CHEST CLINICAL HISTORY: CP/PRESSURE, SOB; DIMER>1 . COMPARISON: X-rays 1 hour prior TECHNIQUE: Helical CTA performed from thoracic inlet to upper abdomen 100 mL Omnipaque 350 Coronal, sagittal reformats. Multiplanar MIPS CT images acquired with automatic exposure control for dose reduction DLP: 264 mGy-cm FINDINGS: Pulmonary arteries: No PE. Thoracic Aorta: No dissection or aneurysm. Heart/pericardium: Unremarkable. RV/LV ratio: Normal. Lungs/Pleura: Hyperinflation. A few tiny foci pneumonitis. Biapical scarring. Minimal bibasilar atelectasis. Calcified granuloma left base. Tracheobronchial tree: Patent. Nodes: No enlarged nodes. Bones: No acute bony abnormality. Soft tissues: Unremarkable. Visualized upper abdomen: Unremarkable. IMPRESSION: 1. No PE or other acute cardiopulmonary findings. Reviewed, dictated and finalized at location R. FORCE ADVISOR
--- NOTE | ~2025-05-30 | XR_ITS ---
Examination: XR chest 2V Clinical History: chest pain midsternal nausea Comparison: 08/12/2023 Technique: PA and Lateral Findings: Cardiomediastinal silhouette normal size and configuration. Lungs clear. Hyperinflation. No acute bony abnormality. IMPRESSION: 1. No acute cardiopulmonary findings. Reviewed, dictated and finalized at location R. MOTIVE REPAIRER DIESEL
--- NOTE | ~2025-05-30 | NM_ITS ---
EXAMINATION: NM mitchel stress w perfusion DATE: 05/30/2025 13:34 INDICATION: Chest pain TECHNIQUE: Rest images were obtained following intravenous administration of 10 mCi Tc99m tetrofosmin (Myoview). The patient was infused intravenously with Lexiscan (Regadenoson). Then, 32.4 mCi Tc99m tetrofosmin (Myoview) was administered intravenously, and stress images were obtained. Data was recons tructed into short axis and horizontal and vertical long axis SPECT images. Gated SPECT images were also obtained. COMPARISON: None. FINDINGS: There is no definite reversible or fixed perfusion abnormality to suggest ischemia or infarction. There is normal left ventricular chamber size, wall motion and ejection fraction. Left ventricular ejection fraction measures >70%. IMPRESSION: 1. Normal myocardial perfusion at rest and during stress. 2. Left ventricular ejection fraction measuring >70%. Reviewed, dictated and finalized at location A. RVISOR TILE AND MOTTLE
--- NOTE | 2025-05-30 02:45 | ECG_ITS ---
Test Date: 2025-05-30 02:48:25 Measurements Intervals [place] Rate: 87 P: 70 AK: 158 QRS: 76 QRSD: 102 T: 56 QT: 390 QTc: 472 Interpretive Statements SINUS RHYTHM WITH OCCASIONAL VENTRICULAR PREMATURE COMPLEXES LEFT ATRIAL ENLARGEMENT [-0.15mV P-WAVE IN V1/V2] NONSPECIFIC T-WAVE ABNORMALITIES No previous ECG available for comparison Electronically Signed On 05-30-2025 13:16:00 RN WOMEN SERVICES by Maged Llamas M.D.
--- OUTSIDE RECORDS SUMMARY | 2025-05-30 02:58 | XMS_ITS | Clinical Summary ---
Author Organization [facility] al Address [address] [place] [address] Care Team Providers Care Programming Equipment Operator Name Role Phone Clare Jalloh MD Primary Care Provider Allergies Active Allergy Reactions Criticality Noted Date Comments Penicillins Rash Medium 03/18/2009 Sulfa (Sulfonamide Antibiotics) Rash Medium Medications coenzyme Q10 200 mg capsule Every other day Active cholecalciferol (VITAMIN D-3) 2000 unit capsule Active multivitamin capsule Take 1 capsule by mouth daily Active rosuvastatin (CRESTOR) 5 mg tabletIndications:M ixed hyperlipidemia Take 1 tablet (5 mg total) by mouth daily 90 tablet 1 5 Active Active Problems Problem Noted Date Diagnosed Date Moderate major depression 02/09/2024 Mild mitral regurgitation 11/05/2023 Aortic regurgitation 11/05/2023 PVC (premature ventricular contraction) 11/05/19 24 Palpitations 11/03/2023 Diverticulitis 04/06/2023 Assessment & Plan (10/05/2023 11:28 AM CDT): There is some evidence for mild sigmoid diverticulitis based on CT scan from 03/2023. We had planned to further assess this with a sigmoidoscopy in a few months but she has been having some chest tightness as below and is about to have a cardiac workup for this (low suspicion this is truly cardiac etiology based on the description). - We will plan for flexible sigmoidoscopy in late November after cardiac workup concludes. Advised patient to notify us regarding the outcome of this workup. We will plan for this to take place at [facility]. Discussed the risks of anesthesia and discussed that we could even do this unsedated but she prefers sedation, which is reasonable so long as cardiac workup is normal. Assessment & Plan (04/06/2023 2:38 PM CDT): There is some evidence for mild sigmoid diverticulitis based on CT scan today. - we will follow this up with a flex sig in 3 months as described above. She had a recent full colonoscopy in June, so full colonoscopy is not required. GERD (gastroesophageal reflux disease) Assessment & Plan (10/05/2023 11:32 AM CDT): She is not having any traditional reflux symptoms at this time. Unclear whether rare chest tightness is related to reflux. - Follow-up cardiology evaluation. - Advised patient to notify us if chest tightness becomes more frequent (and to go to ED if it progresses) - Reasonable to hold off on omeprazole at this time Assessment & Plan (08/25/2022 2:19 PM WEATHER TEACHER): This appears to be her primary symptoms at this time. Recent EGD without esophagitis. She has been taking omeprazole on a PRN basis. - Counseled patient extensively on adherence to GERD diet, keeping mattress elevated at an angle, avoiding eating close to bedtime, etc. - Counseled on taking omeprazole 40mg daily on a long-term basis and discussed potential risks of PPIs. - If she is doing well on this regimen, can later on decrease dose to 20mg. 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 The etiology of mesenteric panniculitis is poorly understood but has been linked to abnormal healing response after surgery or trauma, coexisting autoimmune disease (I.e. PSC, RP fibrosis, Bev thyroiditis, IgG4 disease), paraneoplastic syndrome (Non-hodgkin lymphoma), vs ischemia. She has only a very remote history of abdominal surgery (appendectomy at age 14). No abdominal mass was appreciated on examination. Serum IgGs normal. CRP normal. - CT abdomen pelvis 03/2023 did not reveal mesenteric panniculitis. She also has not had recurrent abdominal pain recently, which is reassuring. I am not convinced this was actually the etiology of her pain but we will continue to monitor this closely. Assessment & Plan (04/06/2023 2:40 PM CDT): CT A/P on 04/03/22 showed fat stranding at the root of the small bowel mesentery, which may be due to edema or inflammation, and was suspicious for mesenteric panniculitis. The etiology of mesenteric panniculitis is poorly understood but has been linked to abnormal healing response after surgery or trauma, coexisting autoimmune disease (I.e. PSC, RP fibrosis, Bev thyroiditis, IgG4 disease), paraneoplastic syndrome (Non-hodgkin lymphoma), vs ischemia. She has only a very remote history of abdominal surgery (appendectomy at age 14). No abdominal mass was appreciated on examination. Serum IgGs normal. CRP normal. - CT abdomen pelvis today did not reveal mesenteric panniculitis, so I do not believe this is currently contributing to her symptoms but we will continue to periodically monitor this. Assessment & Plan (08/25/2022 2:22 PM WEATHER TEACHER): CT A/P on 04/03/22 showed fat stranding at the root of the small bowel mesentery, which may be due to edema or inflammation, and was suspicious for mesenteric panniculitis. The etiology of mesenteric panniculitis is poorly understood but has been linked to abnormal healing response after surgery or trauma, coexisting autoimmune disease (I.e. PSC, RP fibrosis, Bev thyroiditis, IgG4 disease), paraneoplastic syndrome (Non-hodgkin lymphoma), vs ischemia. She has only a very remote history of abdominal surgery (appendectomy at age 14). No abdominal mass was appreciated on examination. Serum IgGs normal. CRP normal. - At this point she has had significant improvement in her symptoms, and I do not think that her current intermittent mild abdominal discomfort is related to this. I favor mesenteric panniculitis to be more of an incidental finding. - We will re-evaluate with CT A/P in 6 months (prior to next visit) to ensure that this finding is stable or improving. - She has no high risk features such as bowel obstruction, chylous ascites, obstructive uropathy, or c/f chronic mesenteric ischemia, which would warrant treatment. - Given absence of mass lesion or surrounding lymphadenopathy, role of obtaining a biopsy is unclear and I would not favor this given age risks associated. Assessment & Plan (05/19/2022 5:34 PM CDT): CT A/P on 04/03/22 showed fat stranding at the root of the small bowel mesentery, which may be due to edema or inflammation, and was suspicious for mesenteric panniculitis. It is unclear to what degree this is actually contributing to her fairly nonspecific symptoms such as intermittent abdominal discomfort, reflux, and indigestion. We need to first confirm the diagnosis by having our radiologists read this study as well. The etiology of mesenteric panniculitis remains somewhat unclear but has been linked to abnormal healing response after surgery or trauma, coexisting autoimmune disease (I.e. PSC, RP fibrosis, Bev thyroiditis, IgG4 disease), paraneoplastic syndrome (Non-hodgkin lymphoma), vs ischemia. She has only a very remote history of abdominal surgery (appendectomy at age 14). No abdominal mass was appreciated on examination. - Obtain [facility] from [facility] and upload for our radiologists to read. I would like to see if there are any specific signs of mesenteric panniculitis, such as fat ring (halo sign) or tumor pseudocapsule. - Check serum IgGs to rule out IgG4 disease - Check inflammatory markers (CRP, ESR) - It is unclear to me whether the generalized abdominal pain that prompted this presentation is truly related to mesenteric panniculitis or whether this was an incidental finding. She has no high risk features such as bowel obstruction, chylous ascites, obstructive uropathy, or c/f chronic mesenteric ischemia, which would warrant treatment. I would favor holding off for treatment with immunomodulators at this time, treating potentially contributing factors to her symptoms (I.e. GERD), performing bi-directional endoscopy to evaluate rectal bleeding, and repeating a CT scan in 6 months to reevaluate for radiologic change. - Given absence of mass lesion or surrounding lymphadenopathy, role of obtaining a biopsy is unclear and I would not favor this given age risks associated. Rectal bleeding 05/18/2022 Assessment & Plan (05/18/2022 12:50 PM CDT): I do not believe this is related to suspected mesenteric panniculitis. Etiologies include hemorrhoids, diverticulosis, advanced colon polyp, colon cancer, or AVMs. - We will plan for colonoscopy for further evaluation. Chronic cough 08/07/2020 Overview (08/07/2020): referring to pulmonology Tinnitus, bilateral 07/09/2020 Sensorineural hearing loss (SNHL) of both ears 1 09/09/2019 Osteopenia 10/26/2018 Mixed hyperlipidemia 03/17/2017 Primary osteoarthritis of hip 03/17/2017 Resolved Problems Problem Noted Date Diagnosed Date Resolved Date Chest tightness 10/05/2023 11/05/2023 Assessment & Plan (10/05/2023 11:30 AM CDT): Infrequently has chest tightness primarily at night. This is only occurring once every few months at this point and is better with movement, so somewhat unlikely this is cardiac in nature (though still possible). It has improved with rasing HOB at night and eating smaller meals, so possible component of GERD as well. - She has a cardiology appointment for further evaluation in October Fluid in endometrial cavity 09/14/2023 02/15/2025 Assessment & Plan (09/14/2023 3:24 PM WEATHER TEACHER): Concern for endometrial thickening on CT 03/2023 EMS 6 mm Follow up TVUS (05/2023) with EMS 2.5 mm with endometrial fluid vs polyp Repeat TVUS today (09/14/23) with EMT measured as 2 mm, endometrial fluid persists, perhaps a focal lesion of fibroid or polyp, reviewed the images with patient and son Bertram EMB attempted on 05/2023 but stenotic cervix Patient offered HSC, D&C for sampling of the fluid but deferred surgical management for continued expectant management Discussed the reassuring finding of the EMS, but the persistence of endometrial fluid, likely due to the cervical stenosis and inability of the fluid to pass, only definitive diagnosis with sampling but prefers to continue to monitor unless a change in her symptoms Irregular cardiac rhythm 08/23/2023 Endometrial polyp 07/20/2023 09/14/2023 Assessment & Plan (07/20/2023 6:30 PM WEATHER TEACHER): Imaging suspicious for a polyp No vaginal bleeding or discharge TVUS 06/15/23 EMS 2.5 mm, small amount of endometrial fluid, hyperechoic structure suspicious for polyp but no blood supply In-office EMB attempted but unable to be performed due to cervical stenosis Patient defers additional office attempts at biopsy Counseled on recommendations for surgical intervention with HSC, D&C, polypectomy given finding of fluid in endometrial cavity in postmenopausal patient, plus increased risk of concurrent endometrial cancer of a polyp in postmenopausal patient Patient prefers to defer surgery at this time given family constraints and 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 Additionally, we discussed the general risks of surgery and anesthesia, which include, but are not limited to, small risk of VT, PE, DVT, Stroke, and rarely Both patient and daughter Krystyna understand the risks of potentially missing a cancer diagnosis with waiting to perform sampling of the uterus Patient prefers to continue monitoring and repeat TVUS 3 months after initial US Abdominal cramping 04/06/2023 Assessment & Plan (04/06/2023 2:36 PM CDT): Periodic episodes of generalized abdominal cramping located across lower abdomen and epigastrium, most prominent in the left lower quadrant. CT with sigmoid wall thickening, concerning for mild or resolving diverticulitis. While this may be contributing to her symptoms, suspect a component of functional dyspepsia or visceral hypersensitivity. - we will plan for flexible sigmoidoscopy in 3 months to reassess diverticulitis seen on CT, and rule out colon cancer. - advised to take IBguard at times of periodic abdominal discomfort. Would not schedule this, as the symptoms are not daily. - will also refer her to Gynecology given endometrial thickening seen on CT today. - reasonable to continue turmeric, which recently had good evidence for functional dyspepsia. - she prefers to not take omeprazole on a daily basis. Given that her symptoms are quite infrequent, this is reasonable. Advised that if she is to restart this, this medication is best taken on a daily basis rather than p.r.n.. - if symptoms persist, consider testing for H pylori. Endometrial hyperplasia 04/06/202308/20 Assessment & Plan (04/06/2023 2:39 PM CDT): CT scan with endometrial thickening greater than expected for postmenopausal status. - referral to Gynecology for possible pelvic ultrasound or endometrial biopsy. Abdominal pain 05/19/2022 02/04/2023 Overview (05/19/2022): Added automatically from request for surgery [id number] Assessment & Plan (05/19/2022 5:35 PM CDT): She has intermittent abdominal discomfort, reflux, and what she describes as indigestion. These symptoms are fairly nonspecific and may be related to dyspepsia/GERD as opposed to truly related to mesenteric panniculitis. - I favor a trial of omeprazole 40mg daily to be taken 30 minutes prior to breakfast to see if her symptoms improve on this regimen. - Given that these symptoms developed over the last 2 years, we will perform EGD at the time of colonoscopy. - Additionally, we discussed lifestyle/dietary modifications at length for reflux. - She was also advised to keep a food diary to identify trigger foods. 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 07/26/2019 10/23/2019 Chest pain 07/26/2019 05/16/2020 Shortness of breath 07/26/2019 02/16/20 25 Systolic ejection murmur 07/26/2019 Immunizations Immunization Administration Dates Next Due Influenza, Quad, Adjuvantate d, Intramuscular 04/21/2022 Influenza, Quadrivalent, Hig h Dose, Preservative Free, Intrr 04/20/2023,04/03/2021,03/23/2020 Influenza, Split 04/26/2013 Influenza, Trivalent, Adjuva nted, Intramuscular 04/17/2018 Influenza, Trivalent, High D ose, Split, Preservative Free, Intramuscular 04/06/2019,05/16/2017,04/20/2016,05/21 Influenza, Trivalent, IM (MDV) 04/16/2014 Influenza, Unspecified 05/02/2024,04/21/2021,11/2019 Pfizer SARS-CoV-2 Monovalent Vaccination (12+ Yrs) PURPLE 06/29/2021,06/16/2021,10/21/2020,09/09 Pneumococcal Conjugate PCV 13 10/31/2014 Pneumococcal Polysaccharide PPV23 11/04/2016, ZOSTER Recombinant 05/27/2022,02/03/2022 Surgical History Surgery Date Site/Laterality Comments APPENDECTOMY 07/19/1954 - 07/18/1955 HAND SURGERY 07/19/1977 - 07/18/1978 HIP SURGERY 09/16/2016 - 10/16/2016 right hip JOINT REPLACEMENT Medical History Medical History Date Comments Hyperlipidemia Osteoarthritis Depression Diverticulitis Depression Tinnitus Allergic rhinitis Chronic kidney disease GERD (gastroesophageal reflux disease) Not recen tly Neuromuscular disorder numbness in feet, calf mu scle pain Family History Medical History Relation Name Comments Rashes / Skin problems Daughter Amber Grimes Alcohol abuse Father Peter Bednara Cancer Father Peter Bednara Depression Father Peter Bednara Diabetes Father Peter Bednara Prostate cancer Father Peter Bednara Arthritis Mother Bhakti Bednaara Heart disease Mother Bhakti Bednaara Rashes / Skin problems Mother Bhakti Bednaara Stroke Mother Bhakti Bednaara old age Mother Bhakti Bednaara Depression Sister 2 Pat Bednara Diabetes Sister 2 Pat Bednara Heart disease Sister 2 Pat Bednara Obesity Sister 2 Pat Bednara Diabetes Son Bernardo Carlson Heart disease Son Bernardo Carlson Relation Name Status Comments Daughter Amber Grimes Father Louis Pete (Age 69) Mother Bhakti Lu (Age 82) Sister 1 Alive Sister 2 Emma Pete (Age 75) Sister 3 Alive Sister 4 Alive Son Bernardo Carlson Social History Tobacco Use Types Packs/Day Years Used Date Smoking Tobacco: Never Passive Smoke Exposure: Never Smokeless Tobacco: Never Tobacco Cessation:Counseling Given: Not Answered Comments:Never smoked Alcohol Use Standard Drinks/Week Comments Yes 1 (1 standard drink = 0.6 oz pur e alcohol) occassionally AUDIT-C Answer Date Recorded Q1: How often do you have a drink containing alc ohol? Monthly or less 02/22/2025 Q2: How many drinks containi ng alcohol do you have on a typical day when you are drinking? 1 or 2 02/22/2025 Q3: How often do you have si x or more drinks on one occasion? Never 02/22/2025 PHQ-2 Answer Date Recorded PHQ-2 Total Score (If total score is 3 or more points, staff should administer the PHQ-9) 1 02/22/2025 Comments No Sex and Gender Information Value Date Recorded Sex Assigned at Not on file Legal Sex Female 4:01 AM WEATHER TEACHER Gender Identity Female 07/08/2020 7:20 AM WEATHER TEACHER Sexual Orientation Straight 07/31/2020 8: 38 AM WEATHER TEACHER Obstetrics History Para Term AB IAB SAB Ectopic Multiple Livin g Live Births 3 3 1 2 3 3 Date Outcome GA Total Labor Labor/2nd/3rd Weight Sex Type Anes PTL Gauri A1 A5 Name Clin 1964 M Vag-S pont Living 1965 F Vag-S pont Living 1967 Term M Vag-S pont Living Last Filed Vital Signs Vital Sign Reading Time Taken Comments Blood Pressure 126/74 02/22/2025 8:50 AM CDT Pulse 69 02/22/2025 8:50 AM CDT Temperature 36.5 C (97.7 F) 02/22/2025 8:50 AM CDT Respiratory Rate 22 06/19/2022 10:10 AM WEATHER TEACHER Oxygen Saturation 97% 02/22/2025 8:50 AM CDT Inhaled Oxygen Concentration - - Weight 73.5 kg (162 lb) 02/22/2025 8:50 AM CDT Height 167.6 cm (5' 6) 02/22/2025 8:50 AM CDT Body Mass Index 26.15 02/22/2025 8:50 AM CDT Plan of Treatment Health Maintenance Due Date Last Done Comments DTaP/Tdap/Td Vaccine (1 - Tdap) 1951 Covid-19 Vaccine (8 - 2024-2 6 season) 2025 04/23/2023, 04/23/2022, 06/29/2021, Additional history exists Influenza Vaccine (#1) 2025 , 04/20/2023, 04/21/2022, Additional history exists Depression Screening 02/22/2026 02/22/2025, 02/17/2024, 08/16/2023, Additional history exists Fall Risk Assessment 02/22/2026 02/22/2025, 02/17/2024, 02/15/2023, Additional history exists Well Visit 65+ 02/22/2026 02/22/2025, 08/07/2023, 02/15/2023, Additional history exists Osteoporosis Screening-Bone Density Scan 08/28/2026 08/28/2024, 01/06/2022, 12/01/2018, Additional history exists Pneumococcal vaccine 65+ Completed 017, 10/31/2014, 06/06/2007 Zoster Vaccine Completed 05/27/2022, 02/03/2022 Hepatitis B Screening Completed 02/22/2025 Procedures Procedure Name Priority Date/Time Associated Diagnosis Comments DEXA AXIAL SKELETON BONE DENSITY 1 OR MORE SITES Schedule Routine, Read Routine (OP Routine) 08/28/2024 8:34 AM WEATHER TEACHER Post-menopausal from Last 3 Months or Most Recently Relevant to Health Maintenance Results * Dexa Axial Skeleton Bone Density 1 or 2 Site (08/28/2024 8:34 AM WEATHER TEACHER) Anatomical Region Laterality Modality Body N/A Mammography 08/28/2024 8:59 AM WEATHER TEACHER Narrative 08/28/2024 9:00 AM WEATHER TEACHER EXAM DESCRIPTION: DEXA AXIAL SKELETON BONE DENSITY 1 OR MORE SITES REASON FOR STUDY: 84 y/o year old F with given history of: Post menopausal status. History taking vitamin-D and calcium. Copyright Expert/Model: [employer] A (S/N [id number]) Facility LSC value of 0.022 for the AP spine, 0.027 for the femur, and 0.023 for the forearm. CLINICAL INFORMATION: Current height: 65.9 inches Maximum height: 66.5 inches Weight: 161 pounds Risk factors: None COMPARISON: 01/06/2022 FINDINGS: AP LUMBAR SPINE L1-L4: Total BMD is 0.879 g/cm2 T-score is -1.5 This is a 0.4% decrease in comparison to prior exam which is not statistically significant. LEFT HIP: Total BMD is 0.870 g/cm2 T-score is -0.6 This is 1.2% increase in comparison to prior exam which is not statistically significant. Femoral neck BMD is 0.671 g/cm2 T-score is -1.6 FRAX: 10 year risk for a major osteoporotic fracture is 14 %, 10 year risk for a hip fracture is 3.8 % IMPRESSION: Low bone mass REFERENCE: Bone mineral density: T-Score: Normal (T-score above or = -1.0) Low bone mass (T-score between -1.0 and -2.5) replaces the previously used term osteopenia Osteoporosis (T-score = or below -2.5) Z-Score: Within the expected range for age (Z-score above -2.0) Below the expected range for age (Z-score is -2.0 or below) Please see below follow up recommendations. Medical evaluation for secondary causes of low bone mineral density may be appropriate. FRAX is a World Health Organization validated fracture risk assessment tool that calculates a person's 10 year probability of a major osteoporosis related fracture and hip fracture. According to the National Osteoporosis Foundation guidelines, postmenopausal women and men age 50 or older with low bone mass and a 10 year probability of a major osteoporosis related fracture = or greater than 20% or a 10 year probability of a hip fracture = or greater than 3% should be considered for pharmacological treatment for the prevention of osteoporosis. For further information, including treatment recommendations, please refer to the 2019 ISCD Official Positions (http://www.iscd.org) and the NOF's Clinician's Guide to Prevention and Treatment of Osteoporosis (http://www.nof.org/professionals/clinical-guidelines) THIS IS AN ELECTRONICALLY VERIFIED FINAL REPORT 08/28/2024 9:00 AM - Electronically signed by Dyana Leal M.D. TW: TW Report ID: [id number] Reading Location: [id number] Procedure Note Dyana Leal MD - 08/28/2024 EXAM DESCRIPTION: DEXA AXIAL SKELETON BONE DENSITY 1 OR MORE SITES REASON FOR STUDY: 84 y/o year old F with given history of: Post menopausal status. History taking vitamin-D and calcium. Copyright Expert/Model: [employer] A (S/N [id number]) Facility LSC value of 0.022 for the AP spine, 0.027 for the femur, and0.023 for the forearm. CLINICAL INFORMATION: Current height: 65.9 inches Maximum height: 66.5 inches Weight: 161 pounds Risk factors: None COMPARISON: 01/06/2022 FINDINGS: AP LUMBAR SPINE L1-L4: Total BMD is 0.879 g/cm2 T-score is -1.5 This is a 0.4% decrease in comparison to prior exam which is notstatistically significant. LEFT HIP: Total BMD is 0.870 g/cm2 T-score is -0.6 This is 1.2% increase in comparison to prior exam which is notstatistically significant. Femoral neck BMD is 0.671 g/cm2 T-score is -1.6 FRAX: 10 year risk for a major osteoporotic fracture is 14 %, 10 year risk for ahip fracture is 3.8 % IMPRESSION: Low bone mass REFERENCE: Bone mineral density: T-Score: Normal (T-score above or = -1.0) Low bone mass (T-score between -1.0 and -2.5) replaces thepreviously used term osteopenia Osteoporosis (T-score = or below -2.5) Z-Score: Within the expected range for age (Z-score above -2.0) Below the expected range for age (Z-score is -2.0 or below) Please see below follow up recommendations. Medical evaluation forsecondary causes of low bone mineral density may be appropriate. FRAX is a World Health Organization validated fracture risk assessmenttool that calculates a person's 10 year probability of a major osteoporosisrelated fracture and hip fracture. According to the National OsteoporosisFoundation guidelines, postmenopausal women and men age 50 or older with low bonemass and a 10 year probability of a major osteoporosis related fracture = or greater than 20% or a 10 year probability of a hip fracture = or greaterthan 3% should be considered for pharmacological treatment for the preventionof osteoporosis. For further information, including treatment recommendations, please referto the 2019 ISCD Official Positions (http://www.iscd.org) and the NOF's Clinician's Guide to Prevention and Treatment of Osteoporosis (http://www.nof.org/professionals/clinical-guidelines) THIS IS AN ELECTRONICALLY VERIFIED FINAL REPORT 08/28/2024 9:00 AM - Electronically signed by Dyana Leal M.D. TW: TW Report ID: [id number] Reading Location: [id number] Clare Jalloh MD IM [facility] Final Result from Last 3 Months or Most Recently Relevant to Health Maintenance Insurance MEDICARE [facility] MEDICARE [employer] MEDICARE SUPPLEMENT MEDICARE [place] MEDICARE SUPPLEMENT Advance Directives For more information, please contact: [phone] Documents on File Type Date Recorded Patient Burrer Machine Expl anation ADVANCE DIRECTIVE 09/26/2016 10:42 AM Adva nce Directive * Full Code (Latest Code Status on File) Date Activated Date Inactivated Comments 06/19/2022 8:28 AM 06/19/2022 2:31 PM Care Teams 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
[2025-05-30 02:59] LABS: Hematocrit 44.0 % (37.0-47.0); Hemoglobin 14.7 g/dL (12.0-15.0); Immature Granulocyte Percent A 0.3 % (0-0.5); Lymphocytes Absolute Auto 1.05 K/mm3 (0.9-3.2); Mean Corpuscular HGB Conc 33.4 g/dl (32-36); Mean Corpuscular Hemoglobin 29.9 pg (26-34); Mean Corpuscular Volume 89.6 fl (80-100); Nucleated Red Blood Cells Absolute Auto 0.000 K/mm3 (0.0-0.012); Nucleated Red Blood Cells Perc 0.0 % (0.0-0.2); Platelet Count Result 188 k/mm3 (150-375); Red Blood Count 4.91 M/mm3 (4.2-5.4); White Blood Count 15.3 K/mm3 (4.5-10.0)
[2025-05-30 03:10] LABS: Alanine Aminotransferase 25 U/L (6-35); Albumin Level 4.3 g/dL (3.5-5.1); Alkaline Phosphatase 99 U/L (38-126); Anion Gap 6 mmol/L (4-12); Aspartate Amino Transferase 34 U/L (14-36); Bilirubin,Total 0.7 mg/dL (0.2-1.3); Blood Urea Nitrogen 17 mg/dL (7-17); Calcium 9.2 mg/dL (8.4-10.2); Carbon Dioxide 27 mmol/L (22-30); Chloride 101 mmol/L (98-107); Estimated CRCL calculation 44 ml/min; Estimated Glomerular Filt Rate > 60; Glucose 128 mg/dL (65-110); INR 0.9; Lipase 113 U/L (23-300); Potassium 4.4 mmol/L (3.4-5.0); Prothrombin Time 12.5 Seconds (11.1-14.7); Sodium 134 mmol/L (137-145); Total Protein 7.5 g/dL (6.3-8.2)
[2025-05-30 03:11] LABS: Partial Thromboplastin Time 25.9 Seconds (22.3-36.8)
--- NOTE | 2025-05-30 03:12 | ED.CHESTPAIN ---
HPI - Chest Pain General Chief Complaint: Chest Pain Stated Complaint: CHEST PRESSURE; RESOLVED AFTER NTG AND ASA. Time Seen by Provider: 05/30/25 02:47 Source: patient, EMS (radio report) and RN notes reviewed Mode of arrival: EMS Limitations: no limitations History of Present Illness HPI narrative: Patient presents with report of chest pain. Patient started having indigestion 2200. She took some omeprazole but this did not help. She then started developing chest pain which she describes as a pressure that was nonradiating. Maximum symptoms were at 0100 this morning. This was associated with shortness of breath as as chills and she felt like she was shaking colic she was freezing. When she was going up the stairs she felt winded. Her symptoms were associated with nausea but no vomiting. She also felt the need to have a bowel movement and it was loose. She has had a dry cough. Denies any hemoptysis. She denies any edema although she did experience some left thigh pain. Not on anticoagulation. Denies any underlying respiratory or cardiac issues. Has previously seen Dr. Gomez however. 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 She had previously been on aspirin but this was stopped last year. EMS administered aspirin and gave 1 nitroglycerin tablet followed by nitro paste and her symptoms resolved. Cardiac risk factors HTN: No HLD: borderline, on statin every other day along with CoQ10 DM: No (prediabetes) Obese: No Smoker: No Personal history IA/TIA/CVA: No Fam Hx IA in first degree relative <65yo: Yes, son IA at 59yo IA and daughter had high cholesterol and underwent bypass surgery Related Data Home Medications ?Medication ?Instructions ?Recorded ?Confirmed ?Last Taken ?Type coenzyme Q10 200 mg capsule 400 mg PO EVERY OTHER DAY 08/29/19 05/30/25 05/28/25 History rosuvastatin 5 mg tablet (Crestor) 5 mg PO EVERY OTHER DAY 08/29/19 05/30/25 05/28/25 History cholecalciferol (vitamin D3) 25 25 mcg PO DAILY 08/06/20 05/30/25 Unknown History mcg (1,000 unit) capsule (Vitamin D3) magnesium 200 mg tablet 500 mg PO DAILY 05/30/25 05/30/25 05/29/25 History Allergies Allergy/AdvReac Type Severity Reaction Status Date / Time Penicillins Allergy Intermediate Rash Verified 05/30/25 09:12 Sulfa (Sulfonamide Allergy Intermediate RASH Verified 05/30/25 09:12 Antibiotics) [facility] Past Medical History Medical History Prediabetes Hyperlipidemia Family History Family History Son Acute myocardial infarction, Onset Age: 59 Diabetes mellitus Daughter Hypercholesterolemia Hx of heart bypass surgery Father Carcinoma of colon Mother CHF (congestive heart failure) Sibling Diabetes mellitus Social History Social History 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 Smoking status: Never smoker Alcohol intake: current Drinks per week: 1 Alcohol use details: WINE Substance use: never Substance use type: does not use Other substance usage details: 1 drink per month Lack of Transportation: No Lack of Food: Never True Current Housing: I Have Housing Concerned About Future Housing: No Difficulty Paying Gas/Electric Bills: No Difficulty Paying for Meds: No Currently Unemployed: No Education: Associate Degree Difficulty w/ Childcare or Family Care: YES Living arrangements: with family Additional living arrangements comments: Gender identity (if verbalized by the patient): Female Spiritual care concerns: No Exam Narrative: GENERAL: Well-appearing, well-nourished, and in no acute distress. HEAD: Normocephalic, atraumatic. EYES: Non injected, non icteric ENT: Nares clear, no rhinorrhea or epistaxis. Gross auditory acuity intact. NECK: Supple. No meningismus. CHEST: Speaking in full sentences. No respiratory distress. HEART: Regular rate and rhythm. . ABDOMEN: Soft, nondistended. No rigidity or guarding. Not peritoneal EXTREMITIES: Normal range of motion. No lower extremity edema. SKIN: Warm, dry, no rash. NEURO: No focal deficits. Alert and oriented. Answering questions. Following commands. Normal speech without aphasia or dysarthria. PSYCH: Normal mood and affect. Course Vital Signs Vital signs: Vital Signs Temperature 97.8 F 05/30/25 02:46 Pulse Rate 87 05/30/25 02:46 Respiratory Rate 13 05/30/25 02:46 Blood Pressure 143/57 H 05/30/25 02:46 Pulse Oximetry 97 05/30/25 02:46 Oxygen Delivery Room Air 05/30/25 02:46 Temperature 98.5 F 05/30/25 11:33 Pulse Rate 65 05/30/25 14:00 Respiratory Rate 14 05/30/25 11:33 Blood Pressure 132/49 L 05/30/25 11:33 Pulse Oximetry 96 05/30/25 11:33 Oxygen Delivery Room Air 05/30/25 11:07 Fraction of Inspired Oxygen 21 05/30/25 10:26 MDM - Chest Pain MDM Narrative Medical decision making narrative: Patient presents concern for chest pain. She started developing indigestion approximately 10:00 p.m. she then started developing chest pain which she describes as pressure associated with nausea shortness of. She experienced chills with this and became dyspneic while going upstairs. EMS administered aspirin and gave nitroglycerin tablet followed by nitro paste and her symptoms resolved. In the emergency department she has acceptable vital signs, mildly elevated systolic blood pressure and mildly low diastolic blood pressure however with a mean arterial pressure of 85mmHg. Can see patient has two prior EKGs 2021, 2023; can not initially load images; will have booky try though there is notation of findings in the lateral leads on previous. HEART SCORE History 2 highly suspicious 1 moderately suspicious 0 slightly suspicious History score [address] depression/elevation not due to LBBB, LVH, or digoxin [address] depression but LBBB, LVH, nonspecific repolarization changes 0 normal ECG score 1 based on iniital Age 2 >/= 65 1 45-64 0 <45 Age score 2 Risk factors (HTN, hypercholesterolemia, DM, obesity with BMI >30, current smoker or cessation </=3mo), positive fam hx with parent or sibling with CVD before age 65, atherosclerotic disease (prior IA, PCI/CABG, CVA/TIA, or peripheral arterial disease) 2 >/= 3 risk factors or history of atherosclerotic dz 1 - 1-2 risk factors 0 no known risk factors Risk factor score 1 Initial Troponin 2 >3 times normal limit 1 1-3 times normal limit 0 less than or equal to normal limit Troponin score 0 Total HEART Score 5 Previous EKG from 08/12/23 is obtained which does not show the same ST depressions in V4/V5/V6 thus these are new. She has a leukocytosis. Zofran ordered for nausea. Dimer >1. Will proceed with CT PE study. Viral swab negative. Repeat troponin normal. Discussed with patient. Amenable to staying. Discussed with paper cone machine tender hospitalist who accepted admission. Differential Diagnosis Differential diagnosis: Likely stable angina, unstable angina pectoris, atypical chest pain, st elevation myocardial infarction, costochondritis, chest pain, biliary colic and other (Acute viral syndrome, pneumonia; dyspepsia) Lab Data Attestation: I reviewed the patient's lab results. 05/30/25 02:54 05/30/25 02:54 Labs: Lab Results 05/30/25 05/30/25 05/30/25 Range/Units 02:53 02:54 04:00 WBC 15.3 H (4.5-10.0) K/mm3 RBC 4.91 (4.2-5.4) M/mm3 Hgb 14.7 (12.0-15.0) g/dL Hct 44.0 (37.0-47.0) % MCV 89.6 (80-100) fl MCH 29.9 (26-34) pg MCHC 33.4 (32-36) g/dl RDW 12.7 (11.5-14.5) % Plt Count 188 (150-375) k/mm3 MPV 10.4 (7.4-10.4) fl Immature Gran % (Auto) 0.3 (0-0.5) % Neut % (Auto) 86.3 H (45.5-73.1) % Lymph % (Auto) 6.9 L (18.3-44.2) % [place] % (Auto) 5.2 (2.6-8.5) % Eos % (Auto) 1.0 (0-4.4) % Baso % (Auto) 0.3 (0.2-1.2) % Lymph # (Auto) 1.05 (0.9-3.2) K/mm3 [place] # (Auto) 0.8 H (0.1-0.6) K/mm3 Eos # (Auto) 0.2 (0-0.3) K/mm3 Baso # (Auto) 0.1 (0.0-0.1) K/mm3 Abs Immat Gran (auto) 0.05 H (0.00-0.031) K/mm3 Absolute Neuts (auto) 13.2 H (1.3-6.7) K/mm3 Absolute Nucleated RBC 0.000 (0.0-0.012) K/mm3 Nucleated RBC % 0.0 (0.0-0.2) % PT 12.5 (11.1-14.7) Seconds INR 0.9 APTT 25.9 (22.3-36.8) Seconds D-Dimer 1.40 H (<0.48) ug/mL Sodium 134 L (137-145) mmol/L Potassium 4.4 (3.4-5.0) mmol/L Chloride 101 (98-107) mmol/L Carbon Dioxide 27 (22-30) mmol/L Anion Gap 6 (4-12) mmol/L BUN 17 (7-17) mg/dL Creatinine 0.79 (0.7-1.0) mg/dL Estim Creat Clear Calc 44 ml/min Estimated GFR > 60 (59 - ) Glucose 128 H (65-110) mg/dL Hemoglobin A1c 6.1 H (<5.7) % Lactic Acid 1.5 (0.7-2.0) mmol/L Calcium 9.2 (8.4-10.2) mg/dL Total Bilirubin 0.7 (0.2-1.3) mg/dL AST 34 (14-36) U/L ALT 25 (6-35) U/L Alkaline Phosphatase 99 (38-126) U/L Troponin I < 0.012 (0.000-0.034) ng/mL Total Protein 7.5 (6.3-8.2) g/dL Albumin 4.3 (3.5-5.1) g/dL Lipase 113 (23-300) U/L Influenza A (RT-PCR) Negative (Negative) Influenza B (RT-PCR) Negative (Negative) RSV (RT-PCR) Negative (Negative) SARS-CoV-2 RNA (RT-PCR) Negative (Negative) 05/30/25 Range/Units 06:06 WBC (4.5-10.0) K/mm3 RBC (4.2-5.4) M/mm3 Hgb (12.0-15.0) g/dL Hct (37.0-47.0) % MCV (80-100) fl MCH (26-34) pg MCHC (32-36) g/dl RDW (11.5-14.5) % Plt Count (150-375) k/mm3 MPV (7.4-10.4) fl Immature Gran % (Auto) (0-0.5) % Neut % (Auto) (45.5-73.1) % Lymph % (Auto) (18.3-44.2) % [place] % (Auto) (2.6-8.5) % Eos % (Auto) (0-4.4) % Baso % (Auto) (0.2-1.2) % Lymph # (Auto) (0.9-3.2) K/mm3 [place] # (Auto) (0.1-0.6) K/mm3 Eos # (Auto) (0-0.3) K/mm3 Baso # (Auto) (0.0-0.1) K/mm3 Abs Immat Gran (auto) (0.00-0.031) K/mm3 Absolute Neuts (auto) (1.3-6.7) K/mm3 Absolute Nucleated RBC (0.0-0.012) K/mm3 Nucleated RBC % (0.0-0.2) % PT (11.1-14.7) Seconds INR APTT (22.3-36.8) Seconds D-Dimer (<0.48) ug/mL Sodium (137-145) mmol/L Potassium (3.4-5.0) mmol/L Chloride (98-107) mmol/L Carbon Dioxide (22-30) mmol/L Anion Gap (4-12) mmol/L BUN (7-17) mg/dL Creatinine (0.7-1.0) mg/dL Estim Creat Clear Calc ml/min Estimated GFR (59 - ) Glucose (65-110) mg/dL Hemoglobin A1c (<5.7) % Lactic Acid (0.7-2.0) mmol/L Calcium (8.4-10.2) mg/dL Total Bilirubin (0.2-1.3) mg/dL AST (14-36) U/L ALT (6-35) U/L Alkaline Phosphatase (38-126) U/L Troponin I < 0.012 (0.000-0.034) ng/mL Total Protein (6.3-8.2) g/dL Albumin (3.5-5.1) g/dL Lipase (23-300) U/L Influenza A (RT-PCR) (Negative) Influenza B (RT-PCR) (Negative) RSV (RT-PCR) (Negative) SARS-CoV-2 RNA (RT-PCR) (Negative) Imaging Data Attestation: I personally reviewed and interpreted this imaging study as follows: My impression: No acute intrathoracic on my independent interpretation chest x-ray Radiologist's impression: Impressions Chest X-Ray 05/30/25 06:05 IMPRESSION: 1. No acute cardiopulmonary findings. Chest CTA 05/30/25 06:28 IMPRESSION: 1. No PE or other acute cardiopulmonary findings. ECG Data EKG #1: Attestation: I personally reviewed and interpreted this ECG as follows: ECG completion date: 05/30/25 ECG completion time: 02:48 Interpretation: Normal sinus rhythm at a rate of 87 beats per minute. Occasional PVCs. There is baseline wander of the isoelectric line it limits full interpretation. MI interval 158. QRS 102. QT/QTC 390/472. No T-wave inversions. Possible ST depression in V4 V5 and V6. Initial difficulty loading image from previous EKG but Interpretive statement from 08/12/23 EKG: Interpretive Statements SINUS RHYTHM WITH SINUS ARRHYTHMIA LEFT AXIS DEVIATION LEFT ATRIAL ENLARGEMENT INCOMPLETE RIGHT BUNDLE BRANCH BLOCK ANTEROSEPTAL INFARCT, AGE INDETERMINATE BORDERLINE ST-T WAVE ABNORMALITY- INF/LAT LEADS ABNORMAL ECG COMPARED TO ECG 12/12/2021 15:03:11 SINUS ARRHYTHMIA NOW PRESENT LEFT-AXIS DEVIATION NOW PRESENT INCOMPLETE RIGHT BUNDLE-BRANCH BLOCK NOW PRESENT MYOCARDIAL INFARCT NOW PRESENT EKG #2: Attestation: I personally reviewed and interpreted this ECG as follows: ECG completion date: 05/30/25 ECG completion time: 06:05 Interpretation: Normal sinus rhythm at a rate of 65 beats per minute. MI interval 169. QRS 102. QT/QTC 411/430. Good R-wave progression across the precordial leads. Incomplete RBBB given QRS less [id number]; RSR' M-shaped pattern in V1-V3; wide, slurred S wave in lateral leads (I, aVL, less so in V5-6). Previously appreciated ST depressions are no longer present. Discharge Plan Discharge Clinical Impression: Leukocytosis, Chest pain Patient Disposition: Still a Patient Condition: Stable
[2025-05-30 03:21] LABS: Troponin I < 0.012 ng/mL (0.000-0.034)
[2025-05-30] MEDS: ONDANSETRON INJ 4 MG/2 ML VIAL IV PUSH (04:14)
[2025-05-30 04:41] LABS: Influenza A QL RT-PCR Negative (Negative); Influenza B QL RT-PCR Negative (Negative); RSV RNA, RT-PCR Negative (Negative); SARS-CoV-2 RNA PCR Negative (Negative)
--- NOTE | 2025-05-30 05:54 | ECG_ITS ---
Test Date: 2025-05-30 06:05:10 Measurements Intervals [place] Rate: 65 P: 70 NM: 169 QRS: 44 QRSD: 102 T: 57 QT: 411 QTc: 430 Interpretive Statements SINUS RHYTHM POSSIBLE LEFT ATRIAL ENLARGEMENT [-0.1mV P-WAVE IN V1/V2] NONSPECIFIC T-WAVE ABNORMALITY Compared to ECG 05/30/2025 02:48:25 Ventricular premature complex(es) no longer present Electronically Signed On 05-30-2025 13:17:03 CLOSING SUPERVISOR by Maged Llamas M.D.
[2025-05-30 07:44] LABS: Troponin I < 0.012 ng/mL (0.000-0.034)
--- NOTE | 2025-05-30 08:19 | WPCEDHO ---
ED Hand Off Checklist All vitals saved:yes IV Site documented:yes All med administrations documented:yes Triage Note Triage Note Pt to the Ed with C/O chest pain 05/30/25 02:46 that started at 2200 om 05/29/25. Pt states it felt like indigestion originally and took omeprazole with no relief. the pin then turned into chest pressure that made her feel very short of breath with chills. Pt got 324 of aspirin enroute and also had one nitro tablet and nitro paste application. No Hx DE Allergies Penicillins Allergy (Intermediate, Verified 08/12/23 14:20) Rash RASH Sulfa (Sulfonamide Antibiotics) Allergy (Intermediate, Verified 08/12/23 14:20) RASH ? THINKS THIS MED Family History (Last Reviewed 05/30/25 @ 05:00 by Awilda Rajan MD) Son Acute myocardial infarction Daughter Hypercholesterolemia Hx of heart bypass surgery Other Carcinoma of colon Administered/Completed Medications Discontinued Medications Ondansetron HCl (Ondansetron Inj 4 Mg/2 Ml Vial) 4 mg IV PUSH ONCE STA Stop: 05/30/25 04:11 Last Admin: 05/30/25 04:14 Dose: 4 mg Documented By: LLG Interventions/Assessments Cardiac Monitoring Start: 05/30/25 02:40 Freq: Status: Active Protocol: Document 05/30/25 06:21 KNW (Rec: 05/30/25 06:21 KNW [id number]) Percher Assessment Percher Yes Applied Pulse Rate (60-100) 74 EKG Rythm Sinus Rhythm IV / Saline Lock, Insert Start: 05/30/25 02:45 Freq: STAT Status: Active Protocol: Document 05/30/25 02:46 LLG (Rec: 05/30/25 02:52 LLG [id number]) IV Assessment Peripheral Access Left Hand IV Catheter Access Initiated Before Arrival Catheter Gauge 20 IV Site Assessment WNL IV Care and WNL Maintenance PA: Cardiovascular Assessment Start: 05/30/25 02:40 Freq: Status: Active Protocol: Document 05/30/25 02:46 LLG (Rec: 05/30/25 02:52 LLG [id number]) Cardiovascular Assessment Cardiovascular Chest Pain,Dyspnea Symptoms Skin Description Normal Color Heart Sounds Normal Jugular Vein None Distention Chest Pain Assessment Chest Pain Intensity 0 PA: Respiratory Assessment Start: 05/30/25 02:40 Freq: Status: Active Protocol: Document 05/30/25 02:46 LLG (Rec: 05/30/25 02:52 LLG [id number]) Respiratory Assessment Symptoms Shortness of Breath at Rest,Shortness of Breath With Exertion Effort Normal Pattern Regular Depth Normal Chest Expansion Symmetrical Cough Description None Sputum Amount None Oxygen Delivery Oxygen Delivery Room Air Pulse Oximetry (90- 99 100) Last Vital Signs Temperature 97.8 F 05/30/25 02:46 Pulse Rate 76 05/30/25 07:22 Respiratory Rate 17 05/30/25 07:22 Pulse Oximetry 97 05/30/25 07:22 Blood Pressure 110/50 L 05/30/25 07:22 Blood Pressure Mean 70 05/30/25 07:22 Oxygen Delivery Room Air 05/30/25 02:46 Weight 76.7 kg 05/30/25 02:46 Last Result - Abnormals Only WBC 15.3 K/mm3 (4.5-10.0) H 05/30/25 02:54 Neut % (Auto) 86.3 % (45.5-73.1) H 05/30/25 02:54 Lymph % (Auto) 6.9 % (18.3-44.2) L 05/30/25 02:54 [place] # (Auto) 0.8 K/mm3 (0.1-0.6) H 05/30/25 02:54 Abs Immat Gran (auto) 0.05 K/mm3 (0.00-0.031) H 05/30/25 02:54 Absolute Neuts (auto) 13.2 K/mm3 (1.3-6.7) H 05/30/25 02:54 D-Dimer 1.40 ug/mL (<0.48) H 05/30/25 02:54 Sodium 134 mmol/L (137-145) L 05/30/25 02:54 Glucose 128 mg/dL (65-110) H 05/30/25 02:54 Most Recent Suicide Severity Rating Suicide Severity Rating NO RISK INDICATED 05/30/25 02:46
[2025-05-30 09:38] LABS: Troponin I < 0.012 ng/mL (0.000-0.034)
--- NOTE | 2025-05-30 11:08 | P.HP_ITS ---
H&P: HPI History of Present Illness Date/Time: 05/30/25 11:08 Chief Complaint: Chest pain Narrative: Patient is an 85-year-old female with past medical history of prediabetes, hyperlipidemia presents ED complaints of chest pain. Symptom onset was last night. Symptoms not improved with omeprazole. She has nonradiating chest pain substernal. She had similar episode a couple years ago and had a negative stres s test. She had follow-up with Cardiology Dr. Gomez outpatient. This time chest pain was nonexertional. Heart score 3 for age and risk factors. Of note, patient states she has increased stress at home. 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 She is anxious about doing any heart catheterization. In the ED: Patient's chest pain resolved with nitroglycerin. She had negative troponins. She had received aspirin. Cardiology was consulted. Patient will be admitted for observation for chest pain possibly unstable angina. Review of Systems Review of Systems: Constitutional: No Fever, No Chills, No Night Sweats, No Fatigue, No Malaise ENT/Mouth: No Hearing Changes, No Ear Pain, No Nasal Congestion, No Sinus Pain, No Hoarseness, No sore throat, No Rhinorrhea, No Swallowing Difficulty Eyes: No Eye Pain, No Redness, No Vision Changes Cardiovascular: Endorses chest pain. No Palpitations, No Dyspnea on Exertion, No Orthopnea, No Claudication, No Edema Respiratory: No Cough, No Sputum, No Wheezing, No Shortness of Breath Gastrointestinal: No Nausea, No Vomiting, No Diarrhea, No Constipation, No Abdominal Pain, No Heartburn, No Hematochezia, No Melena Genitourinary: No Dysuria, No Urinary Frequency, No Hematuria, No Urinary Incontinence, No Urgency Musculoskeletal: No Arthralgias, No Myalgias, No Joint Swelling, No Joint Stiffness, No Back Pain Skin: No Skin Lesions, No Pruritis, No Hair Changes Neuro: No Weakness, No Numbness, No Paresthesias, No Loss of Consciousness, No Syncope, No Dizziness, No Headache Psych: No Anxiety/Panic, No Depression, No Insomnia Heme: No Bruising, No Bleeding Lymph: No Adenopathy Endocrine: No Polyuria, No Polydipsia, No Temperature Intolerance PMFSH Past Medical History Medical History Prediabetes Hyperlipidemia Family History Family History Son Acute myocardial infarction, Onset Age: 59 Diabetes mellitus Daughter Hypercholesterolemia Hx of heart bypass surgery Father Carcinoma of colon Mother CHF (congestive heart failure) Sibling Diabetes mellitus Social History Social History 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 Smoking status: Never smoker Alcohol intake: current Drinks per week: 1 Alcohol use details: WINE Substance use: never Substance use type: does not use Other substance usage details: 1 drink per month Lack of Transportation: No Lack of Food: Never True Current Housing: I Have Housing Concerned About Future Housing: No Difficulty Paying Gas/Electric Bills: No Difficulty Paying for Meds: No Currently Unemployed: No Education: Associate Degree Difficulty w/ Childcare or Family Care: YES Living arrangements: with family Additional living arrangements comments: Gender identity (if verbalized by the patient): Female Spiritual care concerns: No Meds Home Medications and Allergies Home Medications ?Medication ?Instructions ?Recorded ?Confirmed ?Type coenzyme Q10 200 mg capsule 400 mg PO EVERY OTHER DAY 08/29/19 05/30/25 History rosuvastatin 5 mg tablet (Crestor) 5 mg PO EVERY OTHER DAY 08/29/19 05/30/25 History cholecalciferol (vitamin D3) 25 25 mcg PO DAILY 05/30/25 History mcg (1,000 unit) capsule (Vitamin D3) magnesium 200 mg tablet 500 mg PO DAILY 05/30/2507/12 History Allergies Allergy/AdvReac Type Severity Reaction Status Date / Time Penicillins Allergy Intermediate Rash Verified 05/30/25 09:12 Sulfa (Sulfonamide Allergy Intermediate RASH Verified 05/30/25 09:12 Antibiotics) Vital Signs Vital Signs - 24 hr 05/30/25 02:46 05/30/25 02:46 05/30/25 03:01 Temperature 36.6 C Pulse Rate 87 84 Respiratory Rate 13 20 Blood Pressure 143/57 H 129/58 L Pulse Oximetry 97 99 95 Oxygen Delivery Room Air Room Air Fraction of Inspired Oxygen 05/30/25 03:16 05/30/25 03:24 05/30/25 03:45 Temperature Pulse Rate 76 77 77 Respiratory Rate 21 H 15 18 Blood Pressure 121/49 L 152/59 H 131/60 Pulse Oximetry 93 97 96 Oxygen Delivery Fraction of Inspired Oxygen 05/30/25 04:01 05/30/25 04:30 05/30/25 04:54 Temperature Pulse Rate 70 73 86 Respiratory Rate 17 17 18 Blood Pressure 113/56 L 127/63 136/55 L Pulse Oximetry 98 95 99 Oxygen Delivery Fraction of Inspired Oxygen 05/30/25 05:01 05/30/25 06:01 05/30/25 06:21 Temperature Pulse Rate 83 72 74 Respiratory Rate 16 20 Blood Pressure 128/64 108/51 L Pulse Oximetry 96 95 Oxygen Delivery Fraction of Inspired Oxygen 05/30/25 07:22 05/30/25 09:08 05/30/25 10:26 Temperature 36.9 C Pulse Rate 76 66 66 Respiratory Rate 17 18 Blood Pressure 110/50 L 125/53 L Pulse Oximetry 97 97 97 Oxygen Delivery Room Air Fraction of Inspired Oxygen 21 Exam Narrative: - GENERAL: Pleasant woman in No acute d istress. Well-nourished. - EYES: EOMI. Anicteric. - HENT: Moist mucous membranes. - LUNGS: Clear to auscultation bilateral ly, no wheezing, rhonchi, or rales. - CARDIOVASCULAR: Regular rate and rhyth m. No murmur. No JVD. - ABDOMEN: Soft, non-tender and non-dist ended. No palpable masses. - EXTREMITIES: No edema. Peripheral puls es 2+. Non-tender. - NEUROLOGIC: No focal neurological defi cits. CN II-XII grossly intact. - PSYCHIATRIC: Awake, Alert and oriented x 3. Appropriate mood and affect. - SKIN: No rashes or lesions. Warm. - LYMPH: No cervical lymphadenopathy. H&P: Results Labs Labs: Short CBC 05/30/25 Range/Units 02:54 WBC 15.3 H (4.5-10.0) K/mm3 Hgb 14.7 (12.0-15.0) g/dL Hct 44.0 (37.0-47.0) % Plt Count 188 (150-375) k/mm3 [facility] 05/30/25 02:54 Sodium 134 L Potassium 4.4 Chloride 101 Carbon Dioxide 27 BUN 17 Creatinine 0.79 Glucose 128 H Calcium 9.2 Cardiac Enzymes 05/30/25 05/30/25 05/30/25 Range/Units 02:54 06:06 09:05 Troponin I < 0.012 < 0.012 < 0.012 (0.000-0.034) ng/mL Liver Function 05/30/25 Range/Units 02:54 Total Bilirubin 0.7 (0.2-1.3) mg/dL AST 34 (14-36) U/L ALT 25 (6-35) U/L Alkaline Phosphatase 99 (38-126) U/L Albumin 4.3 (3.5-5.1) g/dL ECG Interpretation: Normal sinus rhythm rate 65, no ST change Imaging Chest x-ray: My impression: No acute opacities, clear costophrenic angles Radiologist's impression: IMPRESSION: 1. No acute cardiopulmonary findings. CT scan - chest: Radiologist's impression: IMPRESSION: 1. No PE or other acute cardiopulmonary findings. Assessment and Plan Assessment and plan (1) Chest pain: Code(s): R07.9 - Chest pain, unspecified Status: Acute Plan Chest pain -patient has no history of CAD -Lexiscan ordered -echocardiogram ordered -appreciate cardiology consultation -chest pain improved with nitroglycerin, otherwise does not appear to be typical chest pain. Heart score 3 for age and risk factors Chronic conditions -prediabetes: No medications, diet control -hyperlipidemia: Crestor -supplements: Vitamin D3, Co Q10, magnesium Diet: NPO for heart catheterization in regular diet DVT prophylaxis: Ambulatory Code status: Full code Disposition: Observation, pending stress test. Likely home later today if negative stress test Quality VTE Prophylaxis VTE prophylaxis: mechanical ordered Hospitalist [facility] Advance Care Plan I have confirmed that the patient's Advanced Care Plan is present, code status is documented, or surrogate decision maker is listed in patient medical record.: Yes Medication Reconciliation I have utilized all available resources to obtain, update and review the patients current medications (includes all prescriptions, OTC, herbals, cannabis, and nutritional supplements).: Yes
[2025-05-30 11:25] LABS: Cholesterol 226 mg/dL (0-200); HDL Direct 83 mg/dL; Triglycerides 105 mg/dL (<150)
--- NOTE | 2025-05-30 11:50 | P.CONCA_ITS ---
Assessment and Plan Assessment and plan (1) Chest pain: Code(s): R07.9 - Chest pain, unspecified Status: Acute Plan 85-year-old woman with pre diabetes and hyperlipidemia presents with chest discomfort Chest pain -rule out for ND -possibly cardiac related and will pursue a transthoracic echocardiogram and nuclear stress test History of Present Illness History of Present Illness Consult date/time: 05/30/25 11:50 Requesting physician: Clover Germain APRN Reason For Visit: CP/Heart Score 5/Angina Narrative: 85-year-old woman with pre diabetes and hyperlipidemia presents with chest discomfort. She has been having acid reflux in the evening and some indigestion. His after several hours she developed a new type of chest discomfort that is pressure like and not sensation in her substernal region that is severe in intensity prompting her to seek further help. By the time EMS arrived, they given her sublingual nitroglycerin which helped resolve the discomfort and by time she arrived at the emergency room most of her discomfort had dissipated. Currently she is chest pain-free. Associated with the event she did have some shortness of breath. In the last few months, she has not noted any decline in functional status. She has noted improvement in exercise tolerance as she is now able ambulate up 1 flight of stairs without shortness of breath. Denies any syncopal events. No orthopnea and lower extremity swelling. 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 status: Never smoker Alcohol intake: current Drinks per week: 1 Alcohol use details: WINE Substance use: never Substance use type: does not use Other substance usage details: 1 drink per month Lack of Transportation: No Lack of Food: Never True Current Housing: I Have Housing Concerned About Future Housing: No Difficulty Paying Gas/Electric Bills: No Difficulty Paying for Meds: No Currently Unemployed: No Education: Associate Degree Difficulty w/ Childcare or Family Care: YES Living arrangements: with family Additional living arrangements comments: Gender identity (if verbalized by the patient): Female Spiritual care concerns: No Meds Home Medications and Allergies Home Medications ?Medication ?Instructions ?Recorded ?Confirmed ?Type coenzyme Q10 200 mg capsule 400 mg PO EVERY OTHER DAY 08/29/19 05/30/25 History rosuvastatin 5 mg tablet (Crestor) 5 mg PO EVERY OTHER DAY 08/29/19 05/30/25 History cholecalciferol (vitamin D3) 25 25 mcg PO DAILY 05/30/25 History mcg (1,000 unit) capsule (Vitamin D3) magnesium 200 mg tablet 500 mg PO DAILY 05/30/2507/12 History Allergies Allergy/AdvReac Type Severity Reaction Status Date / Time Penicillins Allergy Intermediate Rash Verified 05/30/25 09:12 Sulfa (Sulfonamide Allergy Intermediate RASH Verified 05/30/25 09:12 Antibiotics) Vital Signs Vital Signs - 24 hr 05/30/25 02:46 05/30/25 02:46 05/30/25 03:01 Temperature 36.6 C Pulse Rate 87 84 Respiratory Rate 13 20 Blood Pressure 143/57 H 129/58 L Pulse Oximetry 97 99 95 Oxygen Delivery Room Air Room Air Fraction of Inspired Oxygen 05/30/25 03:16 05/30/25 03:24 05/30/25 03:45 Temperature Pulse Rate 76 77 77 Respiratory Rate 21 H 15 18 Blood Pressure 121/49 L 152/59 H 131/60 Pulse Oximetry 93 97 96 Oxygen Delivery Fraction of Inspired Oxygen 05/30/25 04:01 05/30/25 04:30 05/30/25 04:54 Temperature Pulse Rate 70 73 86 Respiratory Rate 17 17 18 Blood Pressure 113/56 L 127/63 136/55 L Pulse Oximetry 98 95 99 Oxygen Delivery Fraction of Inspired Oxygen 05/30/25 05:01 05/30/25 06:01 05/30/25 06:21 Temperature Pulse Rate 83 72 74 Respiratory Rate 16 20 Blood Pressure 128/64 108/51 L Pulse Oximetry 96 95 Oxygen Delivery Fraction of Inspired Oxygen 05/30/25 07:22 05/30/25 09:08 05/30/25 10:26 Temperature 36.9 C Pulse Rate 76 66 66 Respiratory Rate 17 18 Blood Pressure 110/50 L 125/53 L Pulse Oximetry 97 97 97 Oxygen Delivery Room Air Fraction of Inspired Oxygen 21 05/30/25 11:33 Temperature 36.9 C Pulse Rate 67 Respiratory Rate 14 Blood Pressure 132/49 L Pulse Oximetry 96 Oxygen Delivery Fraction of Inspired Oxygen Exam 2 Const: General: comfortable HENMT: Mouth: Yes moist mucous membranes Eyes: EOM: EOMs intact bilaterally Neck: Neck: no JVD Resp: Effort & Inspection: normal respiratory effort Auscultation: clear to auscultation bilaterally Cardio: Rate: regular rate Rhythm: regular rhythm Heart sounds: no gallops, no murmurs and no rubs Neuro: Speech: normal speech Results Labs and Meds 05/30/25 02:54 05/30/25 02:54 Lab results: Cardiac Enzymes 05/30/25 05/30/25 05/30/25 Range/Units 02:54 06:06 09:05 AST 34 (14-36) U/L Troponin I < 0.012 < 0.012 < 0.012 (0.000-0.034) ng/mL Coagulation 05/30/25 Range/Units 02:54 PT 12.5 (11.1-14.7) Seconds APTT 25.9 (22.3-36.8) Seconds Lipids 05/30/25 Range/Units 09:05 Triglycerides 105 (<150) mg/dL Cholesterol 226 H (0-200) mg/dL CBC 05/30/25 Range/Units 02:54 WBC 15.3 H (4.5-10.0) K/mm3 RBC 4.91 (4.2-5.4) M/mm3 Hgb 14.7 (12.0-15.0) g/dL Hct 44.0 (37.0-47.0) % Plt Count 188 (150-375) k/mm3 Lymph # (Auto) 1.05 (0.9-3.2) K/mm3 [place] # (Auto) 0.8 H (0.1-0.6) K/mm3 Eos # (Auto) 0.2 (0-0.3) K/mm3 Baso # (Auto) 0.1 (0.0-0.1) K/mm3 Comprehensive Metabolic Panel 05/30/25 Range/Units 02:54 Sodium 134 L (137-145) mmol/L Potassium 4.4 (3.4-5.0) mmol/L Chloride 101 (98-107) mmol/L Carbon Dioxide 27 (22-30) mmol/L BUN 17 (7-17) mg/dL Creatinine 0.79 (0.7-1.0) mg/dL Glucose 128 H (65-110) mg/dL Calcium 9.2 (8.4-10.2) mg/dL AST 34 (14-36) U/L ALT 25 (6-35) U/L Alkaline Phosphatase 99 (38-126) U/L Total Protein 7.5 (6.3-8.2) g/dL Albumin 4.3 (3.5-5.1) g/dL Intake and Output 05/29/25 05/30/25 05/30/25 23:59 07:59 15:59 Output Total 400 Balance -400 Output: Urine 400 Patient Weight 05/30/25 23:59 Weight 74.5 kg
[2025-05-30 12:43] LABS: Hemoglobin A1C 6.1 % (<5.7)
--- NOTE | 2025-05-30 13:28 | ADMGEN ---
This patient, Dania Carlson, was admitted to IMU Room 200-01 at 0852. Patient/family oriented to hospital policies and general routines including ID bracelet, bed and alarms, visiting hours, pain management, procedures, bathroom and other care routines, personal items, smoking policy, room service/diet, and visiting hours. Information on how to activate the Rapid Response Team has been discussed. Patient/Family are encouraged to report perceived risks to care and to ask questions if they do not understand what they are told or what they should do.
--- NOTE | 2025-05-30 14:23 | PM.DS ---
DS: Admitting Diagnosis Discharge Date 05/30/25 Admitting Diagnosis chest pain DS: Discharge Diagnosis Discharge Diagnosis (1) Chest pain: Code(s): R07.9 - Chest pain, unspecified Status: Acute DS: Summary Hospital Course Reason for hospitalization: chest pain Hospital Course: Patient is an 85-year-old female with past medical history of prediabetes, hyperlipidemia presents ED complaints of chest pain. Symptom onset was last night. Symptoms not improved with omeprazole. She has nonradiating chest pain substernal. She had similar episode a couple years ago and had a negative stress test. She had follow-up with Cardiology Dr. Gomez outpatient. This time chest pain was nonexertional. Heart score 3 for age and risk factors. Of note, patient states she has increased stress at home. 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 She is anxious about doing any heart catheterization. In the ED: Patient's chest pain resolved with nitroglycerin. She had negative troponins. She had received aspirin. Cardiology was consulted. Patient will be admitted for observation for chest pain possibly unstable angina. Patient had negative stress test, cardiology said normal echo. LDL 93. Patient chest pain is noncardiac. At time of discharge labs are stable, vitals stable, patient is stable for discharge home. Status at Discharge Cognitive/behavioral status at discharge: Baseline Time Spent with Patient Time attestation: Total time spent providing and/or coordinating discharge services: 35 minutes Exam Narrative: - GENERAL: Pleasant woman in No acute distress. Well-nourished. - EYES: EOMI. Anicteric. - HENT: Moist mucous membranes. - LUNGS: Clear to auscultation bilaterally, no wheezing, rhonchi, or rales. - CARDIOVASCULAR: Regular rate and rhythm. No murmur. No JVD. - ABDOMEN: Soft, non-tender and non-distended. No palpable masses. - EXTREMITIES: No edema. Peripheral pulses 2+. Non-tender. - NEUROLOGIC: No focal neurological deficits. CN II-XII grossly intact. - PSYCHIATRIC: Awake, Alert and oriented x 3. Appropriate mood and affect. - SKIN: No rashes or lesions. Warm. - LYMPH: No cervical lymphadenopathy. DS: Data Data Completed and Pending Labs on day of discharge: Labs from last 24 hours 05/30/25 05/30/25 05/30/25 09:05 06:06 04:00 WBC RBC Hgb Hct MCV MCH MCHC RDW Plt Count MPV Immature Gran % (Auto) Neut % (Auto) Lymph % (Auto) [place] % (Auto) Eos % (Auto) Baso % (Auto) Lymph # (Auto) [place] # (Auto) Eos # (Auto) Baso # (Auto) Abs Immat Gran (auto) Absolute Neuts (auto) Absolute Nucleated RBC Nucleated RBC % PT INR APTT D-Dimer Sodium Potassium Chloride Carbon Dioxide Anion Gap BUN Creatinine Estim Creat Clear Calc Estimated GFR Glucose Hemoglobin A1c Lactic Acid Calcium Total Bilirubin AST ALT Alkaline Phosphatase Troponin I < 0.012 < 0.012 Total Protein Albumin Triglycerides 105 Cholesterol 226 H LDL Cholesterol Direct 93 HDL Direct 83 Lipase Influenza A (RT-PCR) Negative Influenza B (RT-PCR) Negative RSV (RT-PCR) Negative SARS-CoV-2 RNA (RT-PCR) Negative 05/30/25 05/30/25 02:54 02:53 WBC 15.3 H RBC 4.91 Hgb 14.7 Hct 44.0 MCV 89.6 MCH 29.9 MCHC 33.4 RDW 12.7 Plt Count 188 MPV 10.4 Immature Gran % (Auto) 0.3 Neut % (Auto) 86.3 H Lymph % (Auto) 6.9 L [place] % (Auto) 5.2 Eos % (Auto) 1.0 Baso % (Auto) 0.3 Lymph # (Auto) 1.05 [place] # (Auto) 0.8 H Eos # (Auto) 0.2 Baso # (Auto) 0.1 Abs Immat Gran (auto) 0.05 H Absolute Neuts (auto) 13.2 H Absolute Nucleated RBC 0.000 Nucleated RBC % 0.0 PT 12.5 INR 0.9 APTT 25.9 D-Dimer 1.40 H Sodium 134 L Potassium 4.4 Chloride 101 Carbon Dioxide 27 Anion Gap 6 BUN 17 Creatinine 0.79 Estim Creat Clear Calc 44 Estimated GFR > 60 Glucose 128 H Hemoglobin A1c 6.1 H Lactic Acid 1.5 Calcium 9.2 Total Bilirubin 0.7 AST 34 ALT 25 Alkaline Phosphatase 99 Troponin I < 0.012 Total Protein 7.5 Albumin 4.3 Triglycerides Cholesterol LDL Cholesterol Direct HDL Direct Lipase 113 Influenza A (RT-PCR) Influenza B (RT-PCR) RSV (RT-PCR) SARS-CoV-2 RNA (RT-PCR) Discharge Plan Discharge Attending physician on discharge: Trent Germain Consulting providers: Maged Llamas Discharging Clinician: Trent Germain Anticipated Discharge Date/Time: 05/30/25 14:22 Patient Disposition: Home Activity: may shower Diet: regular Discharge Instructions: You have noncardiac chest pain. Follow-up with PCP in 1 week. Patient Instructions: Antibiotic Form Patient Language: Macedonian Stand Alone Forms: General Discharge Information Follow-up/Referrals: Dick,Clare Stovall MD [Primary Care Provider, Internal Medicine] Discharge Medications: Continued coenzyme Q10 200 mg Capsule 400 mg PO EVERY OTHER DAY rosuvastatin [Crestor] 5 mg Tablet 5 mg PO EVERY OTHER DAY cholecalciferol (vitamin D3) [Vitamin D3] 25 mcg (1,000 unit) Capsule 25 mcg PO DAILY magnesium 200 mg tablet 500 mg PO DAILY Date of admission: 05/30/25 08:01 Primary Care Provider: DickClare Admitting Provider: Trent Germain Attending physician on admission: Trent Germain Condition: Stable Hospitalist MIPS Heart Failure (Exclusion) Patient has history of Heart Transplant or Left Ventricular Assistive Device?: No IF YES, STOP HERE Heart Failure (Qualifier) Patient has current or prior documentation of LVEF less than or equal to 40%, or mod/servere depressed LVSF?: No IF NO, STOP HERE
== END 2025-05-30 15:20 | disposition home or self-care (01) ==
LOC: ANHED 02:57 → ANHIMU 08:25
PROVIDERS: Admitting Provider Student in an Organized Health Care Education/Training Program; Emergency Provider Student in an Organized Health Care Education/Training Program; PCP Internal Medicine; Visit Provider Student in an Organized Health Care Education/Training Program
DX: R07.9 Chest pain, unspecified (principal); R73.03 Prediabetes; E78.5 Hyperlipidemia, unspecified; Z20.822 Contact with and (suspected) exposure to COVID-19; Z82.49 Family history of ischemic heart disease and other diseases of the circulatory system; Z83.42 Family history of familial hypercholesterolemia; Z80.0 Family history of malignant neoplasm of digestive organs; Z83.3 Family history of diabetes mellitus
CPT/HCPCS: 36415; 71046; 71275; 78452; 80053; 80061; 83036; 83605; 83690; 84484; 85025; 85380; 85610; 85730; 87637; 93005; 93017; 93306; 96374; 99285; A9502; G0378; J2405; J2785; Q9967